=== PATIENT | male | born 1950 | race Caucasian/White ===

== ENCOUNTER 2021-02-10 09:37 | Outpatient (CLI) | payer MEDICARE, SELFPAY ==
[2021-02-10 10:21] LABS: Hematocrit 55.1 % (42.0-52.0); Hemoglobin 18.6 g/dL (14.0-18.0); Mean Corpuscular HGB Conc 33.8 g/dl (32-36); Mean Corpuscular Hemoglobin 31.2 pg (26-34); Mean Corpuscular Volume 92.4 fl (80-100); Mean Platelet Volume 9.4 fl (7.4-10.4); Platelet Count Result 193 k/mm3 (150-375); Red Blood Count 5.96 M/mm3 (4.6-6.20); Red Cell Distribution Width 13.5 % (11.5-14.5)
[2021-02-10 10:22] LABS: Alanine Aminotransferase 21 U/L (4-50); Albumin Level 4.4 g/dL (3.5-5.1); Alkaline Phosphatase 67 U/L (38-126); Anion Gap 7 mmol/L (8-16); Aspartate Amino Transferase 29 U/L (17-59); Bilirubin,Total 0.9 mg/dL (0.2-1.3); Blood Urea Nitrogen 17 mg/dL (9-20); Calcium 9.6 mg/dL (8.4-10.2); Carbon Dioxide 33 mmol/L (22-30); Chloride 103 mmol/L (98-107); Cholesterol 202 mg/dL (0-200); Estimated Glomerular Filt Rate > 60; Glucose 111 mg/dL (75-110); HDL Direct 43 mg/dL; Sodium 143 mmol/L (137-145); Triglycerides 75 mg/dL (<150)
[2021-02-10 10:33] LABS: LDL Cholesterol Direct 121 mg/dL
[2021-02-10 10:53] LABS: Prostate Specific Antigen 1.7 ng/mL (< OR = 4.0); Thyroid Stimulating Hormone 0.937 uIU/mL (0.465-4.680)
== END 2021-02-10 09:38 | disposition home or self-care (01) ==
PROVIDERS: PCP Internal Medicine; Visit Provider Physician Assistant
DX: R53.83 Other fatigue (principal); E78.5 Hyperlipidemia, unspecified; Z12.5 Encounter for screening for malignant neoplasm of prostate
CPT/HCPCS: 36415; 80053; 80061; 84153; 84443; 85027; G0103

== ENCOUNTER 2021-02-25 09:45 | Outpatient (CLI) | payer MEDICARE, SELFPAY ==
--- NOTE | ~2021-02-25 | NM_ITS ---
EXAMINATION: NM suraj stress w perfusion DATE: 02/25/2021 12:28 INDICATION: Dyspnea on exertion TECHNIQUE: Rest images were obtained following intravenous administration of 9.26 mCi Tc99m tetrofosm in (Myoview). The patient was infused intravenously with Lexiscan (Regadenoson). Then, 28.051 mCi Tc9 9m tetrofosmin (Myoview) was administered intravenously, and stress images were obtained. Data was re constructed into short axis and horizontal and vertical long axis SPECT images. Gated SPECT images we re also obtained. COMPARISON: None. FINDINGS: There is no definite reversible or fixed perfusion abnormality to suggest ischemia or infar ction. There is normal left ventricular chamber size, wall motion and ejection fraction. Left ventr icular ejection fraction measures 66%. IMPRESSION: 1. Normal myocardial perfusion at rest and during stress. 2. Left ventricular ejection fraction measuring 66%. Reviewed, dictated and finalized at location A.
--- NOTE | 2021-02-25 10:03 | EST_ITS ---
Patient Info Name: Porter Deleon Age: 70 years : 1950 Gender: Male Ht: 76 in Wt: 190 lbs BSA: 2.15 m2 Exam Date: 02/25/2021 11:26 AM Exam Location: [facility] Stress Patient Status: Outpatient Admit Date: 02/25/2021 Staff Ordering Physician: Nam Marcano PA-C Attending Provider: Nam Marcano PA-C Exercise Technologist: Opal Green RDCS Exercise Physician: Eric Madrid DO Exam Type: CA stress suraj w NM Study Info Indications R06.02 - Shortness of breath A regadenoson stress test was performed. Summary 1. 1. Negative lexiscan stress test for ischemic ST changes by ECG criteria. 2. 2. Transient complete heart block with lexiscan. 3. 3. Nuclear scan to follow and will be reported separately. Please correlate with it. 4. 4. Patient informed of the above results. Protocol: Lexiscan Stress ECG Details Stage: REST Duration (min): 1 min : 45 sec HR (bpm): 63 SBP (mmHg): 133 DBP (mmHg): 100 Stage: REST Duration (min): 8 min : 47 sec HR (bpm): 63 SBP (mmHg): 133 DBP (mmHg): 100 Stage: STAGE 1 Duration (min): 0 min : 59 sec HR (bpm): 71 SBP (mmHg): 138 DBP (mmHg): 106 Stage: RECOVERY Duration (min): 1 min : 0 sec HR (bpm): 79 SBP (mmHg): 138 DBP (mmHg): 106 Stage: RECOVERY Duration (min): 2 min : 0 sec HR (bpm): 78 SBP (mmHg): 138 DBP (mmHg): 106 Stage: RECOVERY Duration (min): 3 min : 0 sec HR (bpm): 81 SBP (mmHg): 138 DBP (mmHg): 106 Stage: RECOVERY Duration (min): 4 min : 0 sec HR (bpm): 78 SBP (mmHg): 138 DBP (mmHg): 106 Stage: RECOVERY Duration (min): 5 min : 0 sec HR (bpm): 74 SBP (mmHg): 135 DBP (mmHg): 94 Stage: RECOVERY Duration (min): 5 min : 3 sec HR (bpm): 75 SBP (mmHg): 135 DBP (mmHg): 94 Rest HR: 63 bpm Peak HR: 82 bpm Rest Sys BP: 133 mmHg Peak Sys BP: 138 mmHg Max Pred HR: 152 bpm % Max Pred HR: 54 % Target HR: 129 bpm Max RPP: 11,316 bpm*mmHg Termination Reason: Completed protocol Cardiac Symptoms: Shortness of breath, Dizziness, stomach rumbling Total Time: 1 min : 0 sec Rest Miller BP: 100 mmHg Peak Miller BP: 106 mmHg Total Dose: 0.4 mg Resting ECG Sinus rhythm, IRBBB, cannot r/o septal infarct. Stress ECG No ST changes. Arrhythmias None. Patient had 3.6 seconds complete heart block pause immediately with Lexiscan. Report Signatures
== END 2021-02-25 09:46 | disposition home or self-care (01) ==
LOC: ANHCARD 09:49
PROVIDERS: PCP Internal Medicine; Visit Provider Physician Assistant
DX: R06.02 Shortness of breath (principal)
CPT/HCPCS: 78452; 93017; A9502; J2785

== ENCOUNTER 2021-02-26 14:02 | Outpatient (CLI) | payer MEDICARE, SELFPAY ==
--- NOTE | ~2021-02-26 | US_ITS ---
EXAMINATION: US arterial ankle brachial ind DATE: 02/26/2021 14:29 INDICATION: Claudication. 1-2 pack per day smoker. Hypertension. TECHNIQUE: Segmental pressures and plethysmographic and Doppler waveforms of the brachial and lower e xtremity arteries were obtained. COMPARISON: None. FINDINGS: Right and left brachial artery pressures of 123 mm Hg and 126 mm Hg, respectively, are concordant (no rmal difference <= 30 mmHg). The right ankle-brachial index (LAISHA) is 1.13 (normal >= 0.9-1.0). The right great toe-brachial index (TBI) is 0.99 (normal >= 0.65). Arterial Doppler waveforms are biphasic. The left LAISHA is 1.25. The left TBI is 0.98. Arterial Doppler waveforms are biphasic at the posterior tibial artery and triphasic at the dorsalis pedis artery. IMPRESSION: Normal LAISHA and TBI bilaterally Reviewed, dictated and finalized at Location A. Reviewed, dictated and finalized at location B.
--- NOTE | ~2021-02-26 | CT_ITS ---
EXAMINATION:CT lung screening DATE: 02/26/2021 14:36 INDICATION: Personal history of tobacco dependence. Current smoker with 75 pack year history. TECHNIQUE: Computed tomography (CT) of the chest was performed without intravenous contrast. Automate d exposure control and iterative reconstruction technique were employed. The dose-length product (DLP ) was 129.05 mGy-cm. COMPARISON: None. FINDINGS: There is mild emphysema. There is mild scarring at the lung apices. There is a 3 mm nodule in right middle lobe. There is a 2.4 cm part-solid nodule in basilar left lower lobe with solid compo nent measuring up to 5 mm. No pleural effusion. The heart size is normal. There are coronary artery c alcifications. No pericardial effusion. There is mild thoracic spondylosis. IMPRESSION: 1. Lung-RADS category 3: Probably benign. Further evaluation is recommended with noncontrast low-dose chest CT in 6 months. Reviewed, dictated and finalized at location A. IMPRESSION: 1. Lung-RADS category 3: Probably benign. Further evaluation is recommended wit h noncontrast low-dose chest CT in 6 months.
== END 2021-02-26 14:03 | disposition home or self-care (01) ==
PROVIDERS: PCP Internal Medicine; Visit Provider Physician Assistant
DX: Z12.2 Encounter for screening for malignant neoplasm of respiratory organs (principal); Z87.891 Personal history of nicotine dependence; I73.9 Peripheral vascular disease, unspecified
CPT/HCPCS: 71271; 93922

== ENCOUNTER 2021-04-10 01:52 | Day surgery (SDC) | payer MEDICARE, SELFPAY ==
[2021-04-02 14:28] VITALS: BMI 23.3
--- NOTE | 2021-04-10 07:20 | PM.HPGS ---
History of Present Illness History of Present Illness Consent: Risks, benefits, and alternatives have been discussed and questions answered. Patient agrees to proceed with procedure. Chief complaint: neoplasm screening Narrative: Porter Deleon is a 70 year old male referred for colon cancer screening. Review of Systems Review of Systems: All systems reviewed & are unremarkable except as noted in HPI and below PMFSH Family History Family History Father Malignant neoplasm of prostate Mother Family history of dementia Social History Social History Smoking packs per day: 1.5 Smoking cigarettes per day: 30.0 Years smoked: 50 Smoking pack-years: 75.00 Smoking status: Current every day smoker Second hand tobacco smoke exposure: No Alcohol intake: current Drinks per week: 7 Living arrangements: with family Spiritual care concerns: No Meds Home Medications and Allergies Home Medications Medication Instructions Recorded Confirmed Type albuterol sulfate 90 mcg/actuation 2 puff INHALATION Q4-6H PRN #8.5 g 06/17/20 04/10/21 Rx aerosol inhaler hydrochlorothiazide 25 mg tablet 25 mg PO DAILY #90 tablet 06/17/20 04/02/21 Rx budesonide-formoterol [Symbicort] 2 puff INHALATION DAILY PRN 04/02/21 04/10/21 History umeclidinium [Incruse Ellipta] 1 inh INHALATION DAILY 04/02/21 04/02/21 History Allergies Allergy/AdvReac Type Severity Reaction Status Date / Time No Known Allergies Allergy Verified 04/02/21 14:26 Exam Resp: Auscultation: clear to auscultation bilaterally Cardio: Rate: regular rate Rhythm: regular rhythm GI: GI Palp: Yes Soft to palpation and No Tenderness to palpation present (GI) Assessment and Plan Assessment and plan (1) Screening for colorectal cancer: Code(s): Z12.11 - Encounter for screening for malignant neoplasm of colon; Z12.12 - Encounter for screening for malignant neoplasm of rectum Status: Acute Assessment and Plan: Colonoscopy with possible biopsy or polypectomy or cautery or injection of substances.
[2021-04-10 07:39] VITALS: BMI 22.5
[2021-04-10 07:49] VITALS: BP 145/89; PULSE 68; RESP 18; TEMP 35.9; O2SAT 98
--- NOTE | 2021-04-10 08:18 | WPDANESEPPF ---
Anes - Initial Pre Proc Eval Procedure: Operation Date: 04/10/21 08:30 Proposed Procedures p Screening Colonoscopy - Dez Ovalles MD Date/Time: 04/10/21 08:18 Surgeon: Dez Ovalles MD Pre Op Diagnosis: neoplasm screening Patient Data Age: 70 Gender: M Height: 1.93 m Weight: 84 kg Last Vital Signs Temp 96.6 F L 04/10/21 07:49 Pulse 68 04/10/21 07:49 Resp 18 04/10/21 07:49 BP 145/89 H 04/10/21 07:49 Pulse Ox 98 04/10/21 07:49 Allergies Allergy/AdvReac Type Severity Reaction Status Date / Time No Known Allergies Allergy Verified 04/02/21 14:26 Home Medications Medication Instructions Recorded Confirmed Type albuterol sulfate 90 mcg/actuation 2 puff INHALATION Q4-6H PRN #8.5 g 06/17/20 04/10/21 Rx aerosol inhaler hydrochlorothiazide 25 mg tablet 25 mg PO DAILY #90 tablet 06/17/20 04/02/21 Rx budesonide-formoterol [Symbicort] 2 puff INHALATION DAILY PRN 04/02/21 04/10/21 History umeclidinium [Incruse Ellipta] 1 inh INHALATION DAILY 04/02/21 04/02/21 History Patient hx anesthesia problems: none Family hx anesthesia problems: none PMFSH Past Medical History Medical History (Updated 04/10/21 @ 08:16 by Emanuel Mcclain MD) COPD (chronic obstructive pulmonary disease) Hypertension Family History Family History Father Malignant neoplasm of prostate Mother Family history of dementia Social History Social History Smoking packs per day: 1.5 Smoking cigarettes per day: 30.0 Years smoked: 50 Smoking pack-years: 75.00 Smoking status: Current every day smoker Second hand tobacco smoke exposure: No Alcohol intake: current Drinks per week: 7 Living arrangements: with family Spiritual care concerns: No Anes - Eval Final PreProcedure Day of Procedure 04/10/21 08:18 Patient weight: overweight Heart: regular rate and rhythm Lungs: clear to auscultation Airway: Mallampati scale class III Neurological: alert and oriented Last oral intake: >/= 8 hours ASA classification: III Emergent: no Anesthetic plan: proceed Anesthesia type and monitoring: general GIVS and standard monitoring Informed Consent: The patient's anesthetic plan and its attendant risks and benefits were discussed with the patient/family/POA. Questions were solicited and answers provided to the satisfaction of the patient/family/POA.
[2021-04-10] MEDS: SIMETHICONE ORAL SUSPENSION 20 MG/0.3 ML 30 ML BOTTLE 0.6 ML IRRIGATION (08:30)
[2021-04-10] MEDS: LACTATED RINGERS 1,000 ML 150 ML IV CONT (08:42)
[2021-04-10 08:47] VITALS: BP 124/82; PULSE 58; RESP 15; O2SAT 98
[2021-04-10 08:57] VITALS: BP 128/92; PULSE 55; RESP 15; O2SAT 98
[2021-04-10 09:07] VITALS: BP 135/92; PULSE 52; RESP 18; O2SAT 100
== END 2021-04-10 09:20 | disposition home or self-care (01) ==
PROVIDERS: PCP Physician Assistant; Visit Provider Internal Medicine Gastroenterology
PROC: 0DJD8ZZ Inspection of Lower Intestinal Tract, Via Natural or Artificial Opening Endoscopic (ICD-10-PCS; CPT 45378; principal; 2021-04-10 08:30)
DX: Z12.11 Encounter for screening for malignant neoplasm of colon (principal); K62.1 Rectal polyp; D12.2 Benign neoplasm of ascending colon; D12.3 Benign neoplasm of transverse colon; K64.8 Other hemorrhoids; F17.210 Nicotine dependence, cigarettes, uncomplicated
CPT/HCPCS: 45385; 88305; J7120

== ENCOUNTER 2021-10-02 09:57 | Outpatient (CLI) | payer MEDICARE, SELFPAY ==
--- NOTE | ~2021-10-02 | MR_ITS ---
EXAMINATION: MR cervical spine wo con EXAM DATE: 10/02/2021 10:59 INDICATION: R29.898 - Other symptoms and signs involving the musculos... Right hand numbness, loss of dexterity. History neck fracture, paralysis. TECHNIQUE: Multi-sequential, multiplanar MR images of the cervical spine were obtained without contra st. Axial T2, axial T2 MERGE sequence. Sagittal T1, T2, T2 fat saturation images also obtained. Th ere is no prior study for comparison. FINDINGS: There is osseous fusion of the C4-6 vertebral bodies, laminectomies of C5 and C6, posterio r decompression. There is large region of myelomalacia in the cervical spinal cord at this level. Ple ase correlate with patient's prior history. There is moderate disc disease at C6-7, mild at C3-4 with 2-3 mm anterolisthesis. There are no suspicious marrow signal abnormalities. Cervicomedullary juncti on is normal in appearance. Level by level evaluation: C2-C3: Disc does not extend beyond the endplate margin. Uncovertebral joint arthropathy: Mild bilateral. Facet joint arthropathy: Moderate right, mild left. Neural foraminal stenosis: Mild right. Central canal stenosis: No stenosis. C3-C4: There is a mild diffuse disc bulge. Uncovertebral joint arthropathy: Moderate right, mild left. Facet joint arthropathy: Severe right, mild left. Neural foraminal stenosis: Moderate to severe right. Central canal stenosis: Mild. C4-C5: This level is fused. Uncovertebral joint arthropathy: Fused. Facet joint arthropathy: Fused. Neural foraminal stenosis: No stenosis. Central canal stenosis: No stenosis. C5-C6: This level is fused. Uncovertebral joint arthropathy: Fused. Facet joint arthropathy: Fused. Neural foraminal stenosis: No stenosis. Central canal stenosis: No stenosis. C6-C7: There is a mild diffuse disc bulge. Uncovertebral joint arthropathy: Moderate to severe bilateral. Facet joint arthropathy: Moderate bilateral. Neural foraminal stenosis: Moderate to severe left. Mild right. Central canal stenosis: Mild. C7-T1: Disc does not extend beyond the endplate margin. Uncovertebral joint arthropathy: Mild to moderate bilateral. Facet joint arthropathy: Mild to moderate bilateral. Neural foraminal stenosis: Moderate left, mild right. Central canal stenosis: No stenosis. IMPRESSION: 1. C4-6 osseous fusion, laminectomies, myelomalacia; correlate with prior history. 2. Spondylosis with significant right neural foraminal stenosis C3-4, left neural foraminal stenosis C6-7. Reviewed, dictated and finalized at location G. OUR INSIGHT MANAGER IMPRESSION: 1. C4-6 osseous fusion, laminectomies, myelomalacia; correlate with prior hist ory. 2. Spondylosis with significant right neural foraminal stenosis C3-4, left nilton ral foraminal stenosis C6-7.
--- NOTE | ~2021-10-02 | CT_ITS ---
EXAMINATION: CT chest high resolution [facility] EXAM DATE: 10/02/2021 10:22 INDICATION: R93.89 -Abnormal findings on diagnostic imaging, follow-up for abnormal CT scan TECHNIQUE: Spiral CT of the chest without contrast. HRCT. Axial, coronal and sagittal images of the chest were reviewed. Coronal maximum intensity pixel images of chest reviewed. The dose-length prod uct (DLP) for this examination was 284.14 mGy-cm. The exposure was tailored according to patient siz e (auto mA exposure control), and iterative reconstruction (ASIR) was used as additional dose reducti on technique. Comparison is made to prior examination from 02/26/2021. FINDINGS: There is a newly developed spiculated 10 mm right lower lobe nodule, possible development of primary lung cancer. There is a new 6 mm right upper lobe nodule which has more linear component, more consistent with scarring. There is mild to moderate emphysema. The other lung nodules described on prior study are unchanged consistent with postinfectious residua. There are no pleural or pericardial effusions. Tracheobronchial tree is patent. There is no media stinal, hilar or axillary lymphadenopathy. There is no pneumothorax. Heart normal in size. Ther e is mild coronary arterial calcification, arterial sclerosis. Upper abdomen is unremarkable. Ther e is thoracic spondylosis without osteoblastic or osteolytic lesions identified. No evidence of int erlobular septal thickening on the HRCT. IMPRESSION: Interval development of spiculated right lower lobe 1 cm nodule, lung cancer until proven otherwise. Recommend PET/CT for further evaluation. Reviewed, dictated and finalized at location G. ETING BUDGET ANALYST IMPRESSION: Interval development of spiculated right lower lobe 1 cm nodule, lynette ng cancer until proven otherwise. Recommend PET/CT for further evaluation.
== END 2021-10-02 09:58 | disposition home or self-care (01) ==
LOC: ANHIMG 10:01
PROVIDERS: PCP Physician Assistant; Visit Provider Physician Assistant
DX: R93.89 Abnormal findings on diagnostic imaging of other specified body structures (principal); G82.50 Quadriplegia, unspecified; R29.898 Other symptoms and signs involving the musculoskeletal system; M47.892 Other spondylosis, cervical region; Z98.1 Arthrodesis status
CPT/HCPCS: 71250; 72141

== ENCOUNTER 2021-10-30 11:40 | Outpatient (CLI) | payer MEDICARE, SELFPAY ==
--- NOTE | ~2021-10-30 | PE_ITS ---
EXAMINATION: PET skull to mid thigh DATE: 10/30/2021 14:20 INDICATION: 9 neoplasm of unspecified bronchus and lung. TECHNIQUE: Blood glucose level was 113 mg/dL. 10.517 mCi of 18-fluorodeoxyglucose (18-FDG) was admini stered i.v. Low dose computed tomography (CT) images were acquired from the base of the brain to the proximal thighs for attenuation correction and anatomic localization. Positron emission tomography (P ET) images were acquired in the same distribution beginning 78 minutes after injection. Images includ ing fused PET/CT images were reconstructed in axial, coronal, and sagittal planes. Automated exposure control technique was employed. The dose-length product was 918.13mGy-cm. COMPARISON: 02/26/2021 and 10/02/2021 FINDINGS: Head/neck: There is symmetric increased activity in the oral cavity, palatine and lingual tonsils, laryngeal mus cles and ocular muscles without CT correlate, likely physiologic. No pathologically enlarged cervical lymphadenopathy or suspicious foci of increased FDG uptake in the visualized head or neck. Chest: 9 mm spiculated nodule in the right lower lobe which demonstrates decreased now groundglass density a lthough this could also be an artifact of the respiratory motion. There is no associated FDG uptake. No FDG uptake associated with a second 5 mm nodule along the inner band of atelectasis in the posteri or right upper lobe. There is also no FDG uptake associated with the poorly defined approximately 2 c m subsolid nodule at the medial basilar left lower lobe. No new or enlarging pulmonary nodules, pulmo nary edema, pleural effusion or pneumothorax. Heart size is normal. No pericardial effusion. Thoracic aorta is normal in caliber. No pathologically enlarged or FDG avid thoracic lymphadenopathy. Abdomen/pelvis/proximal thighs: Physiologic renal accumulation and excretion of FDG activity in the kidneys, bladder and along portio ns of ureters. 7 cm exophytic cyst at the upper pole of the right kidney. Normal degree and heterogen ous pattern of increased uptake throughout the liver without radiologic correlate or dominant FDG abdullahi d lesion. The gallbladder, pancreas, spleen and bilateral adrenal glands are normal. Mild uptake scat tered throughout the bowels without radiologic correlate, also likely physiologic. Normal appendix. N o other abnormal foci of increased FDG uptake or pathologically enlarged lymphadenopathy in the abdom en, pelvis or proximal thighs. Musculoskeletal: Postoperative changes in the cervical spine with C5 and C6 laminectomies and partial C4 laminectomy w ith both anterior and posterior spinal fusion at these levels. Severe spondylosis at C6-C7. Mild uppe r thoracic dextrocurvature and mild lumbar levocurvature. Osseous defect with corticated margins and without FDG uptake along the right anterior iliac spine likely sequela of old trauma or surgery. Smal l focus of increased FDG uptake along the anterior rim of the right glenoid without radiologic correl ate which is likely degenerative in etiology. Prominent FDG uptake at the left greater trochanter wit hout radiologic correlate likely related to trochanteric bursitis. No suspicious lytic, blastic or FD G avid bone lesions. IMPRESSION: 1. No FDG activity associated with either a 5 mm right middle lobe nodule, a 2 cm ill-defined subsoli d left lower lobe nodule or of a 9 mm right lower lobe nodules, the latter which appears decreased in density since the prior study which favors a benign etiology. While reassuring absence of FDG activi ty does not capsule exclude malignancy and would recommend six-month follow-up low-dose noncontrast c hest CT for further evaluation. Reviewed, dictated and finalized at location A. IMPRESSION: 1. No FDG activity associat
[2021-10-30 12:22] LABS: Glucose Point of Care 113 mg/dl (65-105)
== END 2021-10-30 11:41 | disposition home or self-care (01) ==
LOC: ANHIMG 11:41
PROVIDERS: PCP Physician Assistant; Visit Provider Physician Assistant
DX: D14.30 Benign neoplasm of unspecified bronchus and lung (principal); R91.8 Other nonspecific abnormal finding of lung field
CPT/HCPCS: 78815; A9552

== ENCOUNTER 2022-10-05 09:52 | Outpatient (CLI) | payer MEDICARE, SELFPAY ==
--- NOTE | ~2022-10-05 | CT_ITS ---
CT Scan of the Chest without Contrast: Clinical Indication: Pulmonary nodule Technique: Contiguous sections were acquired throughout the chest without intravenous contrast. Dose reduction technique was used on this scan by utilizing automated exposure control and iterative recon struction technique. The dose-length product (DLP) was 107.04 mGy-cm. COMPARISON: 10/02/2021 and 02/26/2021 Findings: There is no evidence of any significant mediastinal, hilar or axillary lymphadenopathy. The mediastin al soft tissues appear normal. There is no evidence of pleural or pericardial effusion. Interval improvement in right upper lobe peripheral pulmonary nodule (axial image 47). Stable 3 mm ri ght middle lobe pulmonary nodule (axial image 76). Linear scarring left lung base noted. Images through the upper abdomen reveal no abnormalities. Impression: Interval improvement/decrease of peripheral right upper lobe pulmonary nodule since prior exam. Stable 3 mm right middle lobe pulmonary nodule. Reviewed, dictated and finalized at [facility]. HOUSE OPERATIONS MANAGER Impression: Interval improvement/decrease of peripheral right upper lobe pulmonary nodule s tee prior exam. Stable 3 mm right middle lobe pulmonary nodule.
[2022-10-05 10:45] LABS: Basophils Percent Auto 0.3 % (0.2-1.2); Eosinophils Absolute Auto 0.1 K/mm3 (0-0.3); Eosinophils Percent Auto 0.9 % (0-4.4); Hematocrit 54.5 % (42.0-52.0); Immature Granulocyte Absolute 0.02 K/mm3 (0.00-0.031); Immature Granulocyte Percent A 0.3 % (0-0.5); Lymphocytes Absolute Auto 1.17 K/mm3 (0.9-3.2); Lymphocytes Percent Auto 18.5 % (18.3-44.2); Mean Corpuscular Volume 96.8 fl (80-100); Mean Platelet Volume 9.8 fl (7.4-10.4); Monocytes Absolute Auto 0.6 K/mm3 (0.1-0.6); Monocytes Percent Auto 9.3 % (2.6-8.5); Neutrophils Absolute Auto 4.5 K/mm3 (1.3-6.7); Neutrophils Percent Auto 70.7 % (45.5-73.1); Platelet Count Result 190 k/mm3 (150-375); Red Blood Count 5.63 M/mm3 (4.6-6.20); Red Cell Distribution Width 13.7 % (11.5-14.5); White Blood Count 6.3 K/mm3 (4.5-10.0)
[2022-10-05 11:07] LABS: Alanine Aminotransferase 22 U/L (6-50); Albumin Level 4.5 g/dL (3.5-5.1); Alkaline Phosphatase 79 U/L (38-126); Anion Gap 5 mmol/L (8-16); Aspartate Amino Transferase 27 U/L (17-59); Bilirubin,Total 1.1 mg/dL (0.2-1.3); Blood Urea Nitrogen 13 mg/dL (9-20); Calcium 8.7 mg/dL (8.4-10.2); Carbon Dioxide 31 mmol/L (22-30); Chloride 106 mmol/L (98-107); Cholesterol 179 mg/dL (0-200); Estimated Glomerular Filt Rate > 60; Glucose 104 mg/dL (65-110); HDL Direct 43 mg/dL; Potassium 3.8 mmol/L (3.4-5.0); Sodium 142 mmol/L (137-145); Triglycerides 46 mg/dL (<150)
[2022-10-05 11:19] LABS: LDL Cholesterol Direct 106 mg/dL
[2022-10-05 11:28] LABS: Iron 120 ug/dL (49-181)
[2022-10-05 11:37] LABS: Percent Iron Saturation 35 % (20-50)
[2022-10-05 11:38] LABS: Prostate Specific Antigen 0.8 ng/mL (< OR = 4.0); Thyroid Stimulating Hormone 0.543 uIU/mL (0.465-4.680)
[2022-10-05 12:16] LABS: Folic Acid > 20.0 ng/mL (2.76->20)
== END 2022-10-05 09:53 | disposition home or self-care (01) ==
PROVIDERS: PCP Physician Assistant; Visit Provider Physician Assistant
DX: E78.5 Hyperlipidemia, unspecified (principal); Z12.5 Encounter for screening for malignant neoplasm of prostate; R53.83 Other fatigue; D58.2 Other hemoglobinopathies; R91.1 Solitary pulmonary nodule
CPT/HCPCS: 36415; 71250; 80053; 80061; 82607; 82746; 83540; 83550; 84153; 84443; 85025; G0103

== ENCOUNTER 2024-03-02 10:01 | Outpatient (CLI) | payer MEDICARE, SELFPAY ==
[2024-03-02 10:46] LABS: Hematocrit 56.7 % (42.0-52.0); Mean Corpuscular HGB Conc 33.5 g/dl (32-36); Mean Corpuscular Hemoglobin 32.2 pg (26-34); Mean Corpuscular Volume 96.1 fl (80-100); Mean Platelet Volume 9.3 fl (7.4-10.4); Platelet Count Result 179 k/mm3 (150-375); Red Cell Distribution Width 13.3 % (11.5-14.5); White Blood Count 6.9 K/mm3 (4.5-10.0)
[2024-03-02 12:46] LABS: Alanine Aminotransferase 20 U/L (6-50); Albumin Level 4.6 g/dL (3.5-5.1); Alkaline Phosphatase 76 U/L (38-126); Anion Gap 10 mmol/L (4-12); Aspartate Amino Transferase 26 U/L (17-59); Bilirubin,Total 0.9 mg/dL (0.2-1.3); Blood Urea Nitrogen 13 mg/dL (9-20); Calcium 8.8 mg/dL (8.4-10.2); Carbon Dioxide 30 mmol/L (22-30); Chloride 101 mmol/L (98-107); Cholesterol 185 mg/dL (0-200); Estimated Glomerular Filt Rate > 60; Glucose 102 mg/dL (65-110); HDL Direct 45 mg/dL; Potassium 3.7 mmol/L (3.4-5.0); Sodium 141 mmol/L (137-145); Triglycerides 57 mg/dL (<150)
[2024-03-02 12:58] LABS: LDL Cholesterol Direct 128 mg/dL
[2024-03-02 13:16] LABS: Prostate Specific Antigen 0.9 ng/mL (< OR = 4.0); Thyroid Stimulating Hormone 0.876 uIU/mL (0.465-4.680)
== END 2024-03-02 10:02 | disposition home or self-care (01) ==
LOC: ANHLAB 10:07
PROVIDERS: PCP Physician Assistant; Visit Provider Nurse Practitioner
DX: R53.83 Other fatigue (principal); E78.5 Hyperlipidemia, unspecified; Z12.5 Encounter for screening for malignant neoplasm of prostate; D58.2 Other hemoglobinopathies
CPT/HCPCS: 36415; 80053; 80061; 84153; 84443; 85027; G0103

== ENCOUNTER 2024-08-30 13:55 | Outpatient (CLI) | payer MEDICARE, BC, SELFPAY ==
--- NOTE | ~2024-08-30 | XR_ITS ---
EXAMINATION: XR ribs LT 2V DATE: 08/30/2024 14:13 INDICATION: Pleurodynia the left lateral lower chest TECHNIQUE: 3 views of the left ribs were obtained. COMPARISON: Chest CT dated 10/05/2022 FINDINGS: Doppler displaced fracture of the lateral left eighth-10th ribs. Small left pleural effusion with lef t basilar atelectasis. No left-sided pneumothorax. Visualized portions of the right lung also appears unremarkable with no evident pleural effusion or pneumothorax heart size is normal. Sclerotic lesion with appearance consistent with chondroid matrix at the proximal diaphyseal region of the left humer us without evident endosteal scalloping most consistent with an enchondroma. IMPRESSION: 1. Mildly displaced acute fractures of the lateral left eighth-10th rib fractures. 2. Small left pleural effusion with associated basilar atelectasis. Reviewed, dictated and finalized at location B. W IMPRESSION: 1. Mildly displaced acute fractures of the lateral left eighth-10th rib fractur es. 2. Small left pleural effusion with associated basilar atelectasis.
== END 2024-08-30 13:56 | disposition home or self-care (01) ==
PROVIDERS: PCP Nurse Practitioner; Visit Provider Nurse Practitioner
DX: S22.42XA Multiple fractures of ribs, left side, initial encounter for closed fracture (principal); X58.XXXA Exposure to other specified factors, initial encounter; J90 Pleural effusion, not elsewhere classified; J98.11 Atelectasis
CPT/HCPCS: 71100

== ENCOUNTER 2024-09-21 00:45 | Day surgery (SDC) | payer MEDICARE, SELFPAY ==
[2024-09-08 11:48] VITALS: BMI 21.9
--- OUTSIDE RECORDS SUMMARY | 2024-09-21 00:47 | XMS_ITS | Clinical Summary ---
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 Gender Identity Not on file Sexual Orientation Not on file Plan of Treatment Health Maintenance Due Date Last Done Comments Colorectal Cancer Screening Colonoscopy (10 Years) 1950 Hepatitis C 1970 DTaP, Tdap and Td Vaccines ( 1 - Tdap) 1971 Zoster Vaccines (1 of 2) 2002 Pneumococcal Vaccine: 65+ Ye ars (1 of 1 - PCV) 2017 COVID-19 Vaccine ( - 2023-2 5 season) 2024 Influenza Adult (#1) 2024 RSV Immunization or 60+ Years (1 - 1-dose 75+ series) 2027 Meningococcal B Vaccine Aged Out No l onger eligible based on patient's age to complete this topic Meningococcal Vaccine Aged Out No lenin marco eligible based on patient's age to complete this topic RSV Immunizations Under 20 Months Aged Out No longer eligible based on patient's age to complete this topic Advance Directives Documents on File Type Date Recorded Patient Nurse Epidemiologist Expl anation Advance Directives and Living Will 10/30/2017 [employer] POWER OF PUBLIC HEALTH CLINICAL NURSE SPECIALIST Advance Directives and Living Will 10/30/2017 SHORT FORM POWER OF PUBLIC HEALTH CLINICAL NURSE SPECIALIST Advance Directives and Living Will 11/02/2016 SHORT FORM POWER OF PUBLIC HEALTH CLINICAL NURSE SPECIALIST Advance Directives and Living Will 11/02/2016 SHORT FORM POWER OF PUBLIC HEALTH CLINICAL NURSE SPECIALIST
--- OUTSIDE RECORDS SUMMARY | 2024-09-21 00:47 | XMS_ITS | Encounter Summary ---
Author Organization [facility] Address [address] [place] [address] Care Team Providers Care Certified Alcohol Drug Counselor Name Role Phone Nam Marcano PA-C Primary Care Provide r Encounter Details Date Type Department Care Team (Late st Contact Info) Description 04/06/2008 Outpatient Historical [facility] James Granados MD [address] [place] [address] [place] [address] Social History Tobacco Use Types Packs/Day Years Used Date Smoking Tobacco: Every Day Cigarettes 2 30 Alcohol Use Standard Drinks/Week Comments No 0 (1 standard drink = 0.6 oz pur e alcohol) Sex and Gender Information Value Date Recorded Sex Assigned at Not on file Legal Sex Male 5:34 AM RADIO PERFORMER Gender Identity Not on file Sexual Orientation Not on file documented as of this encounter Plan of Treatment Not on file documented as of this encounter Procedures Procedure Name Priority Date/Time Associated Diagnosis Comments PATHOLOGY Routine 04/06/2008 12:00 PM CDT documented in this encounter Results * PATHOLOGY (04/06/2008 12:00 PM CDT) FINAL REPORT [facility] [address] [place], [place] [address] Patient: PORTER CRUZ : 1950 Procedure Date: 04/06/2008 Accession Date: 04/06/2008 Case No: [id number] Ordering Dr: JAMES GRANADOS Case types AW, BW, FW, NW and SH are performed by [facility], [place], [place] SURGICAL PATHOLOGY & NON-GYNECOLOGIC CYTOPATHOLOGY REPORT DIAGNOSIS LARGE INTESTINE, SIGMOID, BIOPSY: - HYPERPLASTIC POLYP. Specimen Description: Sigmoid. Operative Procedure: Colonoscopy. Patient Information/Histo ry/Diagnosis: Colon polyp(s). Adenomatous vs. hyperplastic vs. other. Gross: Received in one container labeled Porter Cruz., sigmoid are three dean tissue fragments, each 0.2 cm in greatest dimension, which are submitted in block A1. [facility] 04.06.2008 01:43 pm Microscopic: Received are three slides labeled [id number] William. Histological sections of the specimen labeled sigmoid show multiple fragments of colonic mucosa with serrated epithelium confined to the superficial surface of the mucosa. There is no evidence of cytological atypia or malignancy. [facility] 04.07.2008 08:15 am Staging Form: No. ELECTRONIC SIGNATURE FOR OSMAR ALVARADO MD- 04/07/08 12:08 pm INTERFACE SYSTEM 04/06/2008 12:0 0 PM CDT us James Granados MD PATHOLOGY/CYTOLOGY ORDERABL ES Final Result INTERFACE SYSTEM Refer to clinic/hospital department documented in this encounter Visit Diagnoses Not on filedocumented in this encounter Care Teams Certified Alcohol Drug Counselor Relationship Specialty Start Date End Date Nam Marcano PA-C PCP - General Physician Greenkeeper 10/12/18 documented as of this encounter
--- OUTSIDE RECORDS SUMMARY | 2024-09-21 00:47 | XMS_ITS | Clinical Summary ---
Author Organization [facility] Address [address] [place] [address] Phone Care Team Providers Care Oil Plant Operator Name Role Phone Provider, None Primary Care Provider Unavailabl e Allergies Active Allergy Reactions Criticality Noted Date Comments Bupropion Other (see Comments) 09/18/2024 seizures Medications hydroCHLOROthia zide 25 MG Tablet Take 25 mg by mouth 2 times daily. Active Pseudoephedrine -Guaifenesin (MUCINEX D PO) Take by mouth. Active albuterol (PROVENTIL HFA, VENTOLIN HFA) 108 (90 Base) MCG/ACT Aerosol Solution take 2 Puffs by inhalation every 4 hours as needed for Wheezing. 8.5 g 8 Active naproxen sodium (Aleve) 220 MG Tablet Take 220 mg by mouth. Active Incruse Ellipta 62.5 MCG/ACT AEROSOL POWDER, BREATH ACTIVATED inhale 1 puff by mouth once daily Active Tadalafil 5 MG Tablet Take 5 mg by mouth daily. 4 Active LUTEIN PO Take 1 Tablet by mouth daily. Active cetirizine (ZyrTEC) 5 MG Tablet Take 10 mg by mouth daily. Active amoxicillin (AMOXIL) 875 MG Tablet Take 1 Tablet by mouth 2 times daily for 10 days. 20 Tablet 5 09/28/19 25 Active azithromycin (ZITHROMAX) 250 MG Tablet Take 2 Tablets by mouth daily for 1 day, THEN 1 Tablet daily for 4 days. 2 tab(s) daily for 1 day, then 1 tab(s) daily for days 2-5. 6 Tablet 5 09/23/19 25 Active Encounters Date Type Department Care Team Description 09/18/2024 4:00 PM INDUSTRIAL SAFETY AND HEALTH MANAGER Ancillary Procedure [facility] [place] [address] [place] [address] Yoana Shabazz APRN, CNP Discharge Disposition: Discharged to home or Selfcare 09/18/2024 1:55 PM INDUSTRIAL SAFETY AND HEALTH MANAGER Urgent Care Visit [facility] [address] [place] [address] Yoana Shabazz APRN, CNP Rib pain (Primary Dx) Discharge Disposition: Discharged to home or Selfcare 09/18/2024 Results Follow-Up [facility] [place] [address] [place] [place] [address] Yoana Shabazz APRN, CNP 09/18/2024 Travel 07/05/2024 11:45 AM INDUSTRIAL SAFETY AND HEALTH MANAGER Ancillary Procedure [facility] [place] [address] [place] [place] [address] Yoana Shabazz APRN, CNP Discharge Disposition: Discharged to home or Selfcare 07/05/2024 10:45 AM INDUSTRIAL SAFETY AND HEALTH MANAGER Urgent Care Visit [facility] [address] [place] [address] Yoana Shabazz APRN, CNP Acute cough (Primary Dx) Discharge Disposition: Discharged to home or Selfcare 07/05/2024 Travel from Last 3 Months Immunizations Immunization Administration Dates Next Due Influenza Vaccine, Quadrivalent, PF 07/23/2021,1 Influenza, High-dose, Quadrivalent 06/17/2023, Influenza, Seasonal, Injectable, Undefined 06/11 Influenza, high-dose, trivalent, PF 06/14/2024,1 08/16/2018,06/10/2018 Pneumococcal Vaccine - 13 Valent 06/10/2018 Pneumococcal Vaccine Adult - 23 Valent 9 Social History Tobacco Use Types Packs/Day Years Used Date Smoking Tobacco: Every Day Cigarettes Smokeless Tobacco: Never Tobacco Cessation:Ready to Q uit: Not Asked; Counseling Given: Not Answered Alcohol Use Standard Drinks/Week Comments Yes 0 (1 standard drink = 0.6 oz pur e alcohol) socially Sexually Active Control Partners Comments Not Currently Sex and Gender Information Value Date Recorded Sex Assigned at Not on file Legal Sex Male 1:57 PM INDUSTRIAL SAFETY AND HEALTH MANAGER Gender Identity Not on file Sexual Orientation Not on file Last Filed Vital Signs Vital Sign Reading Time Taken Comments Blood Pressure 144/88 09/18/2024 1:52 PM INDUSTRIAL SAFETY AND HEALTH MANAGER Pulse 79 09/18/2024 1:52 PM INDUSTRIAL SAFETY AND HEALTH MANAGER Temperature 36.9 C (98.4 F) 09/18/2024 1:52 PM INDUSTRIAL SAFETY AND HEALTH MANAGER Respiratory Rate 19 09/18/2024 1:52 PM INDUSTRIAL SAFETY AND HEALTH MANAGER Oxygen Saturation 94% 09/18/2024 1:52 PM INDUSTRIAL SAFETY AND HEALTH MANAGER Inhaled Oxygen Concentration - - Weight 89.4 kg (197 lb) 04/28/2018 10:16 AM CDT Height 193 cm (6' 4 ) 11/03/2017 1:05 PM CDT Body Mass Index 23.98 11/03/2017 1:05 PM CDT Plan of Treatment Health Maintenance Due Date Last Done Comments Hepatitis C Virus (HCV) Screening 1950 TdaP Immunization 1950 Colonoscopy 1997 Colorectal Cancer Screening 1997 Cologuard 2002 Immunochemical Fecal Occult Blood 2002 Zoster Immunization (1 of 2) 2002 AAA Screening Ultrasound 2017 SARS-COV-2 Immunization ( season) 2024 06/14/2024, 06/17/2023, 07/08/2022, Additional history exists Respiratory Syncytial Virus (RSV) Immunization (Adult) (1 - 1-dose 75+ series) 2027 Pneumococcal Immunization (50+ years) Completed 06/16/2019, 06/10/2018 Pneumococcal Immunization Combined Discontinued 06/16/2019, 06/10/2018 Influenza Immunization Completed , 06/17/2023, 07/08/2022, Additional history exists Hepatitis B Immunization Aged Out No longer eligible based on patient's age to complete this topic Meningococcal Immunization (ACWY) Aged Out No longer eligible based on patient's age to complete this topic Rotavirus Immunization Aged Out No lo nger eligible based on patient's age to complete this topic Procedures Procedure Name Priority Date/Time Associated Diagnosis Comments XR RIBS BILATERAL WITH PA CHEST Stat with Interpretation 09/18/2024 4:08 PM INDUSTRIAL SAFETY AND HEALTH MANAGER Rib pain XR CHEST 2 VIEWS Stat with Interpretation 07/05/2024 11:51 AM INDUSTRIAL SAFETY AND HEALTH MANAGER Acute cough POC INFLUENZA A AND B BY MOLECULAR Routine 07/05/2024 11:08 AM INDUSTRIAL SAFETY AND HEALTH MANAGER Acute cough POC SARS-COV-2 BY MOLECULAR Routine 07/05/2024 11:06 AM INDUSTRIAL SAFETY AND HEALTH MANAGER Acute cough from Last 3 Months Results * XR RIBS BILATERAL WITH PA CHEST (09/18/2024 4:08 PM INDUSTRIAL SAFETY AND HEALTH MANAGER) Anatomical Region Laterality Modality Chest, Rib Bilateral Digital Radiogra phy 09/18/2024 4:25 PM INDUSTRIAL SAFETY AND HEALTH MANAGER Impressions 09/18/2024 4:27 PM INDUSTRIAL SAFETY AND HEALTH MANAGER IMPRESSION: Suspected minimally displaced fractures of the lateral left 10th and 11th ribs and lateral right 9th rib. These could be better evaluated on CT if clinically appropriate. Small left-sided pleural effusion with left basilar opacities, which may represent atelectasis or pneumonia. Narrative 09/18/2024 4:27 PM INDUSTRIAL SAFETY AND HEALTH MANAGER EXAM DESCRIPTION: XR RIBS BILATERAL WITH PA CHEST REASON FOR STUDY: pt c/o right rib pain x 2 days, pt states that he did break some ribs on the left side in early August. He is concerned he has pneumonia due to the broken ribs in August. He continues to have some pain in the left side also TECHNIQUE: 3 view(s) of the bilateral ribs with single view of the chest. COMPARISON: Chest radiograph 07/05/2024 FINDINGS: LUNGS: There is a small left-sided pleural effusion with left basilar opacities. No pneumothorax. HEART/MEDIASTINUM: Cardiac silhouette normal in size. Mediastinal and hilar contours appear normal. LINES/TUBES: None. BONES: There are suspected minimally displaced fractures of the lateral left 10th and 11th ribs. There is also a suspected minimally displaced fracture of the lateral right 9th rib. THIS IS AN ELECTRONICALLY VERIFIED FINAL REPORT 09/18/2024 4:25 PM - Electronically signed by Miguel Blackwell M.D. AM: AM Report ID: [id number] Reading Location: [id number] Procedure Note Miguel Blackwell MD - 09/18/2024 EXAM DESCRIPTION: XR RIBS BILATERAL WITH PA CHEST REASON FOR STUDY: pt c/o right rib pain x 2 days, pt states that he did break some ribs on the left side in early August. He is concerned he has pneumonia due to the broken ribs in August. He continues to have some pain in the left side also TECHNIQUE: 3 view(s) of the bilateral ribs with single view of the chest. COMPARISON: Chest radiograph 07/05/2024 FINDINGS: LUNGS: There is a small left-sided pleural effusion with left basilar opacities. No pneumothorax. HEART/MEDIASTINUM: Cardiac silhouette normal in size. Mediastinal and hilar contours appear normal. LINES/TUBES: None. BONES: There are suspected minimally displaced fractures of the lateral left 10th and 11th ribs. There is also a suspected minimally displaced fracture of the lateral right 9th rib. THIS IS AN ELECTRONICALLY VERIFIED FINAL REPORT 09/18/2024 4:25 PM - Electronically signed by Miguel Blackwell M.D. AM: AM Report ID: [id number] Reading Location: [id number] IMPRESSION: Suspected minimally displaced fractures of the lateral left 10th and 11th ribs and lateral right 9th rib. These could be better evaluated on CT if clinically appropriate. Small left-sided pleural effusion with left basilar opacities, which may represent atelectasis or pneumonia. Yoana Shabazz STRAND BUNCHER FINE WIRE, STERILE PROCESSING TECHNICIAN IMG DIAGNOSTIC ORD ERABLES Final Result * XR CHEST 2 VIEWS (07/05/2024 11:51 AM INDUSTRIAL SAFETY AND HEALTH MANAGER) Anatomical Region Laterality Modality Chest N/A Digital Radiogra phy 07/05/2024 12:2 7 PM INDUSTRIAL SAFETY AND HEALTH MANAGER Impressions 07/05/2024 12:29 PM INDUSTRIAL SAFETY AND HEALTH MANAGER IMPRESSION: No acute cardiopulmonary abnormality. Heart size within normal limits. Thoracic aorta moderately tortuous and ectatic. Narrative 07/05/2024 12:29 PM INDUSTRIAL SAFETY AND HEALTH MANAGER EXAM DESCRIPTION: XR CHEST 2 VIEWS REASON FOR STUDY: Cough and congestion for 3 days TECHNIQUE: PA and lateral radiographic view(s) of the chest. COMPARISON: April 28, 2018 FINDINGS: LUNGS: No focal opacity, pleural effusion, or pneumothorax. HEART/MEDIASTINUM: Heart size within normal limits. Thoracic aorta moderately tortuous and ectatic. LINES/TUBES: None. BONES: No acute osseous abnormality. THIS IS AN ELECTRONICALLY VERIFIED FINAL REPORT 07/05/2024 12:27 PM - Electronically signed by El Livingston M.D. RB: RB Report ID: [id number] Reading Location: [place] [address] Procedure Note El Livingston MD - 07/05/2024 EXAM DESCRIPTION: XR CHEST 2 VIEWS REASON FOR STUDY: Cough and congestion for 3 days TECHNIQUE: PA and lateral radiographic view(s) of the chest. COMPARISON: April 28, 2018 FINDINGS: LUNGS: No focal opacity, pleural effusion, or pneumothorax. HEART/MEDIASTINUM: Heart size within normal limits. Thoracic aorta moderately tortuous and ectatic. LINES/TUBES: None. BONES: No acute osseous abnormality. THIS IS AN ELECTRONICALLY VERIFIED FINAL REPORT 07/05/2024 12:27 PM - Electronically signed by El Livingston M.D. RB: RB Report ID: [id number] Reading Location: [place] [address] IMPRESSION: No acute cardiopulmonary abnormality. Heart size within normal limits. Thoracic aorta moderately tortuous and ectatic. Yoana Shabazz STRAND BUNCHER FINE WIRE, STERILE PROCESSING TECHNICIAN IMG DIAGNOSTIC ORD ERABLES Final Result * POC INFLUENZA A AND B BY MOLECULAR (07/05/2024 11:08 AM INDUSTRIAL SAFETY AND HEALTH MANAGER) INFLUENZA A RNA Negative Negative, Invalid INFLUENZA B RNA Negative Negative, Invalid PROCEDURE CONTROL Valid Swab 07/05/2024 11:0 8 AM INDUSTRIAL SAFETY AND HEALTH MANAGER Yoana Shabazz APRN, CNP POINT OF CARE TEST ING (MANUAL) Final Result * POC SARS-COV-2 BY MOLECULAR (07/05/2024 11:06 AM INDUSTRIAL SAFETY AND HEALTH MANAGER) SARSCOV2 Negative Negative, INVALID PROCEDURE CONTROL Valid Swab NASOPHARYNGEAL SWAB / Unknown 07/05/2024 11:06 AM INDUSTRIAL SAFETY AND HEALTH MANAGER Yoana Shabazz APRN, MYLA POINT OF CARE TEST ING (MANUAL) Final Result from Last 3 Months Insurance MEDICARE [facility] Care Teams Oil Plant Operator Relationship Specialty Start Date End Date Provider, None [place] PCP - General 09/10/17
--- OUTSIDE RECORDS SUMMARY | 2024-09-21 00:47 | XMS_ITS | Encounter Summary ---
Author Organization [facility] Address [address] [place] [address] Care Team Providers Care Wireline Operator Name Role Phone Unavailable Primary Care Provider Unavailabl e Encounter Details Date Type Department Care Team (Late st Contact Info) Description 10/30/2017 Abstract [facility] CONVERSION [address] [place] [address] , Generic Conversion, Social History Tobacco Use Types Packs/Day Years Used Date Smoking Tobacco: Never Assessed Sex and Gender Information Value Date Recorded Sex Assigned at Not on file Legal Sex Male 10:50 PM ASSOCIATE DIRECTOR FINANCE Gender Identity Not on file Sexual Orientation Not on file documented as of this encounter Plan of Treatment Not on file documented as of this encounter Visit Diagnoses Not on filedocumented in this encounter
--- OUTSIDE RECORDS SUMMARY | 2024-09-21 00:47 | XMS_ITS | Encounter Summary ---
Author Organization [facility] Address [address] [place] [address] Care Team Providers Care Side Laster Staple Name Role Phone Nam Marcano PA-C Primary Care Provide r Encounter Details Date Type Department Care Team (Latest Contact Info) Description 01/26/2008 Outpatient Historical [facility] Ariel Davis MD [address] [place] [address] Special Screening for Malignant Neoplasm of Prostate Social History Tobacco Use Types Packs/Day Years Used Date Smoking Tobacco: Every Day Cigarettes 2 30 Alcohol Use Standard Drinks/Week Comments No 0 (1 standard drink = 0.6 oz pur e alcohol) Sex and Gender Information Value Date Recorded Sex Assigned at Not on file Legal Sex Male 5:34 AM CRM MANAGER Gender Identity Not on file Sexual Orientation Not on file documented as of this encounter Plan of Treatment Not on file documented as of this encounter Visit Diagnoses Diagnosis Special screening for malignant neoplasm of prostate documented in this encounter Care Teams Side Laster Staple Relationship Specialty Start Date End Date Nam Marcano PA-C PCP - General Physician Inspector Purchased Parts 10/12/18 documented as of this encounter
--- OUTSIDE RECORDS SUMMARY | 2024-09-21 00:48 | XMS_ITS | Referral Summary ---
Author Organization [facility] [address] Address [address] [place] [address] Care Team Providers Care Residential Nurse Name Role Phone Hiram Gonsales MD Primary Care Provider [phone] Allergies No known active allergies Medications hydroCHLOROthiaz zacarias (HYDRODIURIL) 25 mg tablet Take 25 mg by mouth daily 12/16/2020 Active Incruse Ellipta 62.5 mcg/actuation blister with device INHALE 1 PUFF BY MOUTH ONCE DAILY 02/24/2021 Active Active Problems Problem Noted Date Diagnosed Date COPD (chronic obstructive pulmonary disease) Pulmonary HTN 04/09/2021 Atrioventricular block, complete (CMS/HCC) 03/13 First degree AV block 03/13/2021 Intermittent lightheadedness 03/13/2021 Tobacco abuse 03/13/2021 DUDLEY (dyspnea on exertion) 03/13/2021 Dyslipidemia 03/13/2021 Acute hemorrhagic cystitis 03/21/2016 Overview (11/19/2016): Acute cystitis with hematuria Social History Tobacco Use Types Packs/Day Years Used Date Smoking Tobacco: Heavy Smoker Smokeless Tobacco: Never Comments:Smoking History Pac ks/day: 2 Packs Alcohol Use Standard Drinks/Week Comments Yes 0 (1 standard drink = 0.6 oz pur e alcohol) Personal Safety Answer Date Recorded Getting School Help Needed Not on file 10/29 Sex and Gender Information Value Date Recorded Sex Assigned at Not on file Legal Sex Male 1:42 PM WAREHOUSE PROCESSOR Gender Identity Not on file Sexual Orientation Not on file Last Filed Vital Signs Vital Sign Reading Time Taken Comments Blood Pressure 130/84 04/09/2021 10:29 AM CDT Pulse 72 04/09/2021 10:29 AM CDT Temperature - - Respiratory Rate 16 03/13/2021 10:1 3 AM CDT Oxygen Saturation 98% 04/09/2021 10: 29 AM CDT Inhaled Oxygen Concentration - - Weight 87.4 kg (192 lb 11.2 oz) 021 10:29 AM CDT Height 193 cm (6' 4 ) 04/09/2021 10:29 AM CDT Body Mass Index 23.46 04/09/2021 10:29 AM CDT Plan of Treatment Not on file Insurance MEDICARE [facility] Care Teams Residential Nurse Relationship Specialty Start Date End Date Hiram Gonsales MD [address] [address] PCP - General Internal Medicine 03/13/21
--- OUTSIDE RECORDS SUMMARY | 2024-09-21 00:48 | XMS_ITS | Clinical Summary ---
Author Organization [facility] Address [address] [place] [address] Phone Care Team Providers Care Product/Device Technologist Name Role Phone Nam Marcano PA-C Primary Care Provide r Allergies No known active allergies Medications CENTRUM SILVER Oral Tab Take 1 Tab by mouth daily. Active ALEVE 220 mg Oral Tab Take 220 mg by mouth every 4 hours as needed Active WELLBUTRIN SR 150 mg Oral TbSRIndications :Depression Take 1 Tab by mouth 2 times daily. 180 Tab 3 9 Active Tadalafil (CIALIS) 10 mg Oral Tab Take 10 mg by mouth 1 time daily as needed for Other (See Comment). 10 Tab 0 9 Active hydroCHLOROthia zide 25 mg tablet Take 25 mg by mouth daily. Active umeclidinium brm/vilanterol tr (ANORO ELLIPTA INHALATION) Take 1 Puff by inhalation daily. Active cetirizine (ZyrTEC) 5 mg tablet Take 10 mg by mouth daily. Active diazePAM (VALIUM) 5 mg tablet Take 1 Tablet by mouth 4 times daily as needed for Spasm. 90 Tablet 10/19/2018 7:44 PM LIGHTNING PROTECTION INSTALLER 9 Active oxyCODONE-aceta minophen (PERCOCET) 5-325 mg tablet Take 1 Tablet by mouth every 4 hours as needed for Pain. Max Daily Amount: 6 Tablets 42 Tablet 10/19/2018 7:44 PM LIGHTNING PROTECTION INSTALLER 9 Active Active Problems Problem Noted Date Diagnosed Date Depression 09/07/2008 Tobacco use disorder 01/24/2008 Screening for lipoid disorders 01/24/2008 Prostate cancer screening 01/24/2008 Routine physical examination 01/24/2008 Immunizations Immunization Administration Dates Next Due Influenza Seasonal Unspecified Formulation IM Family History Medical History Relation Name Comments Cancer Father prostate Dementia Mother Relation Name Status Comments Father Mother Social History Tobacco Use Types Packs/Day Years Used Date Smoking Tobacco: Every Day Cigarettes 2 30 Smokeless Tobacco: Never Alcohol Use Standard Drinks/Week Comments Yes 0 (1 standard drink = 0.6 oz pur e alcohol) socially Sex and Gender Information Value Date Recorded Sex Assigned at Not on file Legal Sex Male 5:34 AM LIGHTNING PROTECTION INSTALLER Gender Identity Not on file Sexual Orientation Not on file Last Filed Vital Signs Vital Sign Reading Time Taken Comments Blood Pressure 134/75 10/19/2018 7:00 PM LIGHTNING PROTECTION INSTALLER Pulse 85 10/19/2018 7:00 PM LIGHTNING PROTECTION INSTALLER Temperature 36.6 C (97.8 F) 10/19/2018 7:00 PM LIGHTNING PROTECTION INSTALLER Respiratory Rate 16 10/19/2018 7:00 PM LIGHTNING PROTECTION INSTALLER Oxygen Saturation 93% 10/19/2018 7:00 PM LIGHTNING PROTECTION INSTALLER Inhaled Oxygen Concentration - - Weight 90.4 kg (199 lb 6.4 oz) 10/19/2018 1:04 P M LIGHTNING PROTECTION INSTALLER Height 193 cm (6' 4 ) 10/19/2018 1:04 PM LIGHTNING PROTECTION INSTALLER Body Mass Index 24.27 10/19/2018 1:04 PM LIGHTNING PROTECTION INSTALLER Plan of Treatment Health Maintenance Due Date Last Done Comments FIT/ DNA Q 3 YEARS (AUTO ORDER) 1970 FIT/FOBT Q 1 YEAR (AUTO ORDER) 1970 FLEX SIG/CT COLONOGRAPHY Q 5 YEARS (AUTO ORDER) 1970 DTAP/TDAP/TD VACCINES (1 - Tdap) 1971 Traditional Medicare (ACO) A nnual Wellness Visit 1971 COLORECTAL CANCER SCREENING (AUTO ORDER) 1997 COLORECTAL SCREENING 1997 Colorectal Cancer Screening (AUTO ORDER) 1997 Colorectal Cancer Screening 1997 FIT-DNA Q 3 years 1997 FIT/FOBT Q 1 year 1997 Flex Sig/CT Colonography Q 5 years 1997 ZOSTER VACCINE (1 of 2) 2002 PNEUMOCOCCAL VACCINE 65+ YEA RS (2 of 2 - PPSV23) 08/05/2018 06/10/2018 INFLUENZA VACCINE (#1) 2024 06/11/2018, 2017 RSV VACCINE (60+ or ) (1 - 1-dose 75+ series) 2027 Medical Devices Implanted Type Area Batter Mixer Helper Device Identifier Shelf Expiration Date Model / Serial / Lot Hemostatic Surgiflo 8ml W/Thrombin 2994 - [id number] Implanted:Qty : 1 on 10/19/2018 by Janes Navarro MD at [facility] Hemostatic N/A: Epidural Space [employer] [id number] 02/13/2020 [id number] / / [id number] Thumb Hardware Neck Hardware Insurance MEDICARE PART A AND B [facility] [id number] [address] Medicare Part D RX [employer] PLANS (INTERNAL) [facility] Internal Plans Advance Directives For more information, please contact: [phone] * Full Code (Latest Code Status on File) Date Activated Date Inactivated Comments 10/19/2018 4:06 PM 10/19/2018 11:32 PM * Full Code Date Activated Date Inactivated Comments 10/19/2018 1:30 PM 10/19/2018 4:06 PM Care Teams Product/Device Technologist Relationship Specialty Start Date End Date Nam Marcano PA-C PCP - General Physician Optometric Technician 10/12/18
--- OUTSIDE RECORDS SUMMARY | 2024-09-21 00:48 | XMS_ITS | Continuity of Care Document ---
Author Organization [facility] Address [address] [facility] [address] [place] [address] Phone Care Team Providers Care Fiber Optics Technician Name Role Phone Sandeep Cruz MD Unavailable Unavailable Allergies, Adverse Reactions, Alerts Substance Reaction Status Criticality No Known Allergies Active No Inform ation Medications Medication Instructions Dosage Effective Dates (start - stop) Status Comments HYDROCHLOROTHIAZIDE (unknown strength) take 1 tablet by oral route every day Not Available - Active Procedures Procedure Date OFFICE/OUTPATIENT VISIT [facility] Advance Directives Directive Yes / No Effective Date File Name No Information Encounters Encounter Description Practice Location Reason(s) For Visit Diagnoses Date Provider Providers Copied on Encounter [facility], [address] [place] [address], [facility], [phone] [facility] No Information [address] [facility]. [address] [place] [address], [id number] . tel: [phone] OFFICE/OUTPAT IENT VISIT [facility], [address] [place] [address], [facility], tel:[phone] [facility] Chronic instability of right knee 9 [facility]. [address] [place] [address], [id number] . tel: [phone] Family History Family Member Type Diagnosis Age At Onset Daughter Problem (finding) Alive and well Payers Payer name Insurance type Covered alliance party ID Authoriza tion(s) No Information Social History Type Description Quantity Date Captured Comments Sex Male Smoking Status No Information Chief Complaint And Reason For Visit No Information Reason For Referral Reason For Referral No Information Plan Of Treatment Date Type Action Status Referral Ordered: RADEX ISAUROE COMPL 4/MORE VIEWS RT ordered History Of Present Illness Encounter Date Complaint History Of Prese nt Illness No Information Functional Status Date Functional Assessmen t No Information Instructions Date Instruction Additional Infor mation No Information Assessments Type Assessment Date No Information Patient Care Teams Name Effective Dates (start - stop) Status Members No Information
--- OUTSIDE RECORDS SUMMARY | 2024-09-21 00:48 | XMS_ITS | Clinical Summary ---
Author Organization [facility] [address] Address [address] [place] [address] Care Team Providers Care Auto Body Mechanic Name Role Phone Hiram Gonsales MD Primary Care Provider [phone] Allergies No known active allergies Medications hydroCHLOROthiaz [...] 03/21/2016 Overview (11/19/2016): Acute cystitis with hematuria Surgical History Surgery Date Site/Laterality Comments PROSTATE SURGERY THUMB SURGERY Medical History Medical History Date Comments Hx Other Medical 2007 thumb surgery Hx Other Medical 1972 neck surgery Hypertension COPD (chronic obstructive pulmonary disease) (HC C) Enlarged prostate Family History Medical History Relation Name Comments Other Father 2 age; Cause of D eath: age Prostate cancer Father 2 Cancer -pros moralez; Alzheimer's disease Mother 2 Alzheime r's Disease; Cause of : Alzheimer's Disease Relation Name Status Comments Father 1 (Age 100) Father 2 Mother 1 (Age 83) Mother 2 Social History Tobacco Use Types Packs/Day Years [...] on file Legal 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
--- OUTSIDE RECORDS SUMMARY | 2024-09-21 00:48 | XMS_ITS | Encounter Summary ---
Author Organization [facility] Address [address] [place] [address] Care Team Providers Care Care Attendant Name Role Phone Nam Marcano PA-C Primary Care Provide r Encounter Details Date Type Department Care Team (Latest Contact Info) Description 02/24/2008 Outpatient Historical [facility] Ariel Davis MD [address] [place] [address] [place] [address] Pain in Joint, Multiple Sites Social History Tobacco Use Types Packs/Day Years Used Date Smoking Tobacco: Every Day Cigarettes 2 30 Alcohol Use Standard Drinks/Week Comments No 0 (1 standard drink = 0.6 oz pur e alcohol) Sex and Gender Information Value Date Recorded Sex Assigned at Not on file 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
--- OUTSIDE RECORDS SUMMARY | 2024-09-21 00:48 | XMS_ITS | Encounter Summary ---
Author Organization [facility] Address [address] [place] [address] Phone Care Team Providers Care Copywriter Name Role Phone Provider, None Primary Care Provider Unavailabl e Encounter Details Date Type Department Care Team (Late st Contact Info) Description 09/18/2024 Results Follow-Up [facility] [place] [address] [place] [address] Yoana Shabazz APRN, AUTOMATIC OPERATOR [address] [place] [address] Social History Tobacco Use Types Packs/Day Years Used Date Smoking Tobacco: Every Day Cigarettes Smokeless Tobacco: Never Alcohol Use Standard Drinks/Week Comments Yes 0 (1 standard drink = 0.6 oz pur e alcohol) socially Sexually Active Control Partners Comments Not Currently Sex and Gender Information Value Date Recorded Sex Assigned at Not on file Legal Sex Male 1:57 PM PHYSICAL SECURITY SPECIALIST Gender Identity Not on file Sexual Orientation Not on file documented as of this encounter Plan of Treatment Not on file documented as of this encounter Visit Diagnoses Not on filedocumented in this encounter Additional Health Concerns Assessment Noted Time PHQ-9 Depression Total Score: 0 09/20/19 18 3:00 PM PHYSICAL SECURITY SPECIALIST documented as of this encounter Care Teams Copywriter Relationship Specialty Start Date End Date Provider, None [place] PCP - General 09/10/17 documented as of this encounter
[2024-09-21 08:40] VITALS: BP 126/103; PULSE 70; RESP 18; TEMP 35.9; O2SAT 95; BMI 22.0
[2024-09-21] MEDS: LACTATED RINGERS 1,000 ML 150 ML IV CONT (08:51)
--- NOTE | 2024-09-21 09:05 | WPDANESEPPF ---
Anes - Initial Pre Proc Eval Procedure: Operation Date: 09/21/24 10:00 Proposed Procedures p Screening Colonoscopy - Ld Girard MD Date/Time: 09/21/24 09:05 Surgeon: Ld Girard MD Pre Op Diagnosis: personal hx colon polyps Patient Data Age: 74 Gender: M Height: 1.93 m Weight: 82.1 kg Last Vital Signs Temp 35.9 C L 09/21/24 08:40 Pulse 70 09/21/24 08:40 Resp 18 09/21/24 08:40 BP 126/103 H 09/21/24 08:40 Pulse Ox 95 09/21/24 08:40 O2 Del Method Room Air 09/21/24 08:40 Allergies Allergy/AdvReac Type Severity Reaction Status Date / Time bupropion AdvReac Severe Muscle Verified 09/21/24 08:39 Spasms Home Medications ?Medication ?Instructions ?Recorded ?Confirmed ?Type albuterol sulfate 90 mcg/actuation 2 puff inhalation Q4-6H PRN 06/17/20 09/13/24 Rx aerosol inhaler (ProAir HFA) shortness of breath or wheezing #8.5 grams tadalafil 5 mg tablet See Rx Instructions .Route 08/22/24 09/13/24 Rx .COMPLEX #30 tabs tolterodine 4 mg capsule,extended 4 mg PO Q24H #30 caps 08/30/24 09/21/24 Rx release 24 hr umeclidinium 62.5 mcg/actuation See Rx Instructions .Route 09/21/24 09/21/24 Rx blister powder for inhalation .COMPLEX #90 ea (Incruse Ellipta) Patient hx anesthesia problems: none Family hx anesthesia problems: none Results Review: All pre-operative results and documents have been reviewed as part of the pre-operative evaluation. [facility] Past Medical History Medical History Closed fracture of cervical spine BMI 24.0-24.9, adult Screening for prostate cancer Sciatica of right side Right leg weakness Essential hypertension Easy bruising Cough COPD exacerbation Blurred vision Atypical nevus COVID-19 Hypertension COPD (chronic obstructive pulmonary disease) Family History Family History Father Malignant neoplasm of prostate Mother Family history of dementia Social History Social History Smoking packs per day: 1 Smoking cigarettes per day: 20.0 Years smoked: 50 Smoking pack-years: 50.00 Smoking status: Current every day smoker Tobacco type: cigarettes Second hand tobacco smoke exposure: No Alcohol intake: current Drinks per week: 3 Substance use: never Substance use type: does not use Do You Feel Safe in your Home?: Yes Lack of Transportation: No Lack of Food: Never True Current Housing: I Have Housing Concerned About Future Housing: No Difficulty Paying Gas/Electric Bills: No Difficulty Paying for Meds: No Currently Unemployed: No Education: Trade/Vocational Certificate Difficulty w/ Childcare or Family Care: No Living arrangements: alone Occupation/Education: retired Additional occupation/education comments: [employer] Gender identity (if verbalized by the patient): Male Spiritual care concerns: No Anes - Eval Final PreProcedure Day of Procedure 09/21/24 09:05 Patient weight: normal Heart: regular rate and rhythm Lungs: decreased breath sounds Airway: Mallampati scale class II Neurological: alert and oriented Last oral intake: >/= 8 hours ASA classification: III Emergent: no Anesthetic plan: proceed Anesthesia type and monitoring: general GIVS and standard monitoring Results Review: All pre-operative results and documents have been reviewed as part of the pre-operative evaluation. Informed Consent: The patient's anesthetic plan and its attendant risks and benefits were discussed with the patient/family/POA. Questions were solicited and answers provided to the satisfaction of the patient/family/POA.
--- NOTE | 2024-09-21 09:19 | P.HP_ITS ---
History of Present Illness History of Present Illness Consent: Risks, benefits, and alternatives have been discussed and questions answered. Patient agrees to proceed with procedure. Chief complaint: personal hx colon polyps Narrative: Porter Deleon is a 74 year old male with colon polyp in 2020 Review of Systems Review of Systems: All systems reviewed & are unremarkable except as noted in HPI and below PMFSH Past Medical History Medical History (Updated 09/21/24 @ 09:20 by Ld Girard MD) Colon polyp Closed fracture of cervical spine BMI 24.0-24.9, adult Screening for prostate cancer Sciatica of right side Right leg weakness Essential hypertension Easy bruising Cough COPD exacerbation Blurred vision Atypical nevus COVID-19 Hypertension COPD (chronic obstructive pulmonary disease) Family History Family History Father Malignant neoplasm of prostate Mother Family history of dementia Social History Social History Smoking packs per day: 1 Smoking cigarettes per day: 20.0 Years smoked: 50 Smoking pack-years: 50.00 Smoking status: Current every day smoker Tobacco type: cigarettes Second hand tobacco smoke exposure: No Alcohol intake: current Drinks per week: 3 Substance use: never Substance use type: does not use Do You Feel Safe in your Home?: Yes Lack of Transportation: No Lack of Food: Never True Current Housing: I Have Housing Concerned About Future Housing: No Difficulty Paying Gas/Electric Bills: No Difficulty Paying for Meds: No Currently Unemployed: No Education: Trade/Vocational Certificate Difficulty w/ Childcare or Family Care: No Living arrangements: alone Occupation/Education: retired Additional occupation/education comments: [employer] Gender identity (if verbalized by the patient): Male Spiritual care concerns: No Meds Home Medications and Allergies Home Medications ?Medication ?Instructions ?Recorded ?Confirmed ?Type albuterol sulfate 90 mcg/actuation 2 puff inhalation Q4-6H PRN 06/17/20 09/13/24 Rx aerosol inhaler (ProAir HFA) shortness of breath or wheezing #8.5 grams tadalafil 5 mg tablet See Rx Instructions .Route 08/22/24 09/13/24 Rx .COMPLEX #30 tabs tolterodine 4 mg capsule,extended 4 mg PO Q24H #30 caps 08/30/24 09/21/24 Rx release 24 hr umeclidinium 62.5 mcg/actuation See Rx Instructions .Route 09/21/24 09/21/24 Rx blister powder for inhalation .COMPLEX #90 ea (Incruse Ellipta) Allergies Allergy/AdvReac Type Severity Reaction Status Date / Time bupropion AdvReac Severe Muscle Verified 09/21/24 08:39 Spasms Vital Signs Vital Signs - 24 hr 09/21/24 08:40 Temperature 96.6 F L Pulse Rate 70 Respiratory Rate 18 Blood Pressure 126/103 H Pulse Oximetry 95 Oxygen Delivery Room Air Exam Const: General: comfortable and no acute distress HENMT: Face/Nose/Sinus: Normal nares present Eyes: General: appearance normal, both eyes and all related structures Neck: Neck: no JVD Resp: Auscultation: clear to auscultation bilaterally Cardio: Rate: regular rate Rhythm: regular rhythm GI: Inspection: non-distended GI Palp: Yes Soft to palpation Skin: General skin exam: normal color Neuro: Speech: normal speech Extrem: General: normal to inspection Psych: Mental Status: mental status grossly normal Assessment and Plan Assessment and plan (1) Colon polyp: Code(s): K63.5 - Polyp of colon Status: Acute Assessment and Plan: colonoscopy
[2024-09-21 09:39] VITALS: BP 121/79; PULSE 59; RESP 15; O2SAT 98
[2024-09-21 09:49] VITALS: BP 140/90; PULSE 60; RESP 17; O2SAT 98
[2024-09-21 09:59] VITALS: BP 153/101; PULSE 59; RESP 21; O2SAT 100
== END 2024-09-21 10:17 | disposition home or self-care (01) ==
PROVIDERS: PCP Nurse Practitioner; Referring Provider Internal Medicine Gastroenterology; Visit Provider Internal Medicine Gastroenterology
PROC: 0DJD8ZZ Inspection of Lower Intestinal Tract, Via Natural or Artificial Opening Endoscopic (ICD-10-PCS; CPT 45378; principal; 2024-09-21 10:00)
DX: Z12.11 Encounter for screening for malignant neoplasm of colon (principal); D12.3 Benign neoplasm of transverse colon; K63.5 Polyp of colon; K64.8 Other hemorrhoids; F17.210 Nicotine dependence, cigarettes, uncomplicated
CPT/HCPCS: 45385; 88305; J7120

== ENCOUNTER 2024-09-29 13:09 | Outpatient (CLI) | payer MEDICARE, SELFPAY ==
--- NOTE | ~2024-09-29 | US_ITS ---
EXAM: Focused ultrasound examination of the soft tissues of the right groin HISTORY: K40.90 - Unilateral inguinal hernia, without obstruction ... TECHNIQUE: Sonographic evaluation of the soft tissues of the right groin were performed assessing gra yscale appearance and color Doppler flow. COMPARISON: Reference is made to a PET/CT dated . FINDINGS: Sonographic evaluation of the soft tissues of the right groin demonstrate benign fibrofatty and fibro muscular elements without a cystic or solid lesion of concern. IMPRESSION No sonographic abnormality is appreciated on focused ultrasound examination. Reviewed, dictated and finalized at location A. R TEST IMPRESSION No sonographic abnormality is appreciated on focused ultrasound examination.
== END 2024-09-29 13:10 | disposition home or self-care (01) ==
LOC: MICIMG 13:10
PROVIDERS: PCP Nurse Practitioner; Visit Provider Surgery
DX: K40.90 Unilateral inguinal hernia, without obstruction or gangrene, not specified as recurrent (principal)
CPT/HCPCS: 76882

== ENCOUNTER 2024-09-29 14:39 | Outpatient (CLI) | payer MEDICARE, SELFPAY ==
--- NOTE | ~2024-09-29 | CT_ITS ---
Clinical indication:Solitary pulmonary nodule COMPARISON:10/02/2021 and 10/05/2022 TECHNIQUE: Multiple contiguous axial images of the chest were performed without the administration of intravenous contrast. DLP: 122 mGy-cm FINDINGS: LUNG:Interval resolution of the right upper lobe peripheral pulmonary nodule seen on axial image 47 o f the 2022 study and on image 41 of today's examination. Stable appearance of the 3 mm right middle lobe pulmonary nodule seen on axial image 76 of the 2022 s tudy and on image 68 of today's examination. No new pulmonary nodules are detected. The lungs are clear. MEDIASTINUM:No pathologically enlarged or morphologically suspicious lymph nodes within the mediastin um. HEART:The heart is of normal size, without pericardial effusion. SOFT TISSUES OF THE CHEST: Unremarkable BONES OF THE CHEST: Unremarkable VISUALIZED PORTION OF THE UPPER ABDOMEN: Redemonstration of a large right-sided renal cyst. Gallbladder is decompressed, without calcified stones. A small hiatal hernia is present. IMPRESSION: Interval resolution of the peripheral right upper lobe pulmonary nodule since the previous examinatio n. 2 years of stability of the 3 mm right middle lobe pulmonary nodule Reviewed, dictated and finalized at location A. EN MILL UTILITY WORKER IMPRESSION: Interval resolution of the peripheral right upper lobe pulmonary nodule since t he previous examination. 2 years of stability of the 3 mm right middle lobe pulmonary nodule
--- OUTSIDE RECORDS SUMMARY | 2024-09-29 14:43 | XMS_ITS | Clinical Summary ---
Author Organization [facility] Address [address] [place] [address] Phone Care Team Providers Care Senior Manager Creative Services Name Role Phone Nam Marcano PA-C Primary [...] for Spasm. 90 Tablet 10/19/2018 7:44 PM CHESS INSTRUCTOR 9 Active oxyCODONE-aceta minophen (PERCOCET) 5-325 mg tablet Take 1 Tablet by mouth every 4 hours as needed for Pain. Max Daily Amount: 6 Tablets 42 Tablet 10/19/2018 7:44 PM CHESS INSTRUCTOR 9 Active Active Problems Problem Noted Date [...] on file Legal Sex Male 5:34 AM CHESS INSTRUCTOR Gender Identity Not on file Sexual Orientation Not on file Last Filed Vital Signs Vital Sign Reading Time Taken Comments Blood Pressure 134/75 10/19/2018 7:00 PM CHESS INSTRUCTOR Pulse 85 10/19/2018 7:00 PM CHESS INSTRUCTOR Temperature 36.6 C (97.8 F) 10/19/2018 7:00 PM CHESS INSTRUCTOR Respiratory Rate 16 10/19/2018 7:00 PM CHESS INSTRUCTOR Oxygen Saturation 93% 10/19/2018 7:00 PM CHESS INSTRUCTOR Inhaled Oxygen Concentration - - Weight 90.4 kg (199 lb 6.4 oz) 10/19/2018 1:04 P M CHESS INSTRUCTOR Height 193 cm (6' 4 ) 10/19/2018 1:04 PM CHESS INSTRUCTOR Body Mass Index 24.27 10/19/2018 1:04 PM CHESS INSTRUCTOR Plan of Treatment Health Maintenance Due Date [...] series) 2027 Medical Devices Implanted Type Area Pot Maker Device Identifier Shelf Expiration Date Model / Serial / Lot Hemostatic Surgiflo 8ml W/Thrombin 2994 - [id number] Implanted:Qty : 1 on 10/19/2018 by Janes Navarro MD at [facility] Hemostatic N/A: Epidural Space [employer] [id number] 02/13/2020 [id number] / / [id number] Thumb Hardware Neck Hardware Insurance MEDICARE PART A AND B [facility] [id number] RX [place] Medicare Part D RX [employer] PLANS (INTERNAL) [facility] Internal Plans Advance Directives For more information, please contact: [phone] * Full Code (Latest Code Status on File) Date Activated Date Inactivated Comments 10/19/2018 4:06 PM 10/19/2018 11:32 PM * Full Code Date Activated Date Inactivated Comments 10/19/2018 1:30 PM 10/19/2018 4:06 PM Care Teams Senior Manager Creative Services Relationship Specialty Start Date End Date Nam Marcano PA-C PCP - General Physician Otolaryngologist 10/12/18
--- OUTSIDE RECORDS SUMMARY | 2024-09-29 14:43 | XMS_ITS | Encounter Summary ---
Author Organization [facility] Address [address] [place] [address] Care Team Providers Care Cocoa Bean Roaster Helper Name Role Phone Nam Marcano PA-C Primary Care Provide r Encounter Details Date Type Department Care Team (Late st Contact Info) Description 04/06/2008 Outpatient Historical [facility] James Granados MD [address] [place] [address] [place] [address] Social History Tobacco Use Types Packs/Day Years Used Date Smoking Tobacco: Every Day Cigarettes 2 30 Alcohol Use Standard Drinks/Week Comments No 0 (1 standard drink = 0.6 oz pur e alcohol) Sex and Gender Information Value Date Recorded Sex Assigned at Not on file Legal Sex Male 5:34 AM WRAPPER HAND Gender Identity Not on file Sexual Orientation Not on file documented as of this encounter Plan of Treatment Not on file documented as of this encounter Procedures Procedure Name Priority Date/Time Associated Diagnosis Comments PATHOLOGY Routine 04/06/2008 12:00 PM CDT documented in this encounter Results * PATHOLOGY (04/06/2008 12:00 PM CDT) FINAL REPORT [facility] [address] [place], [place] [address] Patient: PORTER CRUZ : 1950 Procedure Date: 04/06/2008 Accession Date: 04/06/2008 Case No: [id number] Ordering Dr: JAMES GRANADOS Case types AW, BW, FW, NW and SH are performed by [facility], [place], [place] SURGICAL PATHOLOGY & NON-GYNECOLOGIC CYTOPATHOLOGY REPORT DIAGNOSIS LARGE INTESTINE, SIGMOID, BIOPSY: - HYPERPLASTIC POLYP. Specimen Description: Sigmoid. Operative Procedure: Colonoscopy. Patient Information/Histo ry/Diagnosis: Colon polyp(s). Adenomatous vs. hyperplastic vs. other. Gross: Received in one container labeled Porter Cruz., sigmoid are three dean tissue fragments, each 0.2 cm in greatest dimension, which are submitted in block A1. [facility] 04.06.2008 01:43 pm Microscopic: Received are three slides labeled [id number] William. Histological sections of the specimen labeled sigmoid show multiple fragments of colonic mucosa with serrated epithelium confined to the superficial surface of the mucosa. There is no evidence of cytological atypia or malignancy. [facility] 04.07.2008 08:15 am Staging Form: No. ELECTRONIC SIGNATURE FOR OSMAR ALVARADO MD- 04/07/08 12:08 pm INTERFACE SYSTEM 04/06/2008 12:0 0 PM CDT us James Granados MD PATHOLOGY/CYTOLOGY ORDERABL ES Final Result INTERFACE SYSTEM Refer to clinic/hospital department documented in this encounter Visit Diagnoses Not on filedocumented in this encounter Care Teams Cocoa Bean Roaster Helper Relationship Specialty Start Date End Date Nam Marcano PA-C PCP - General Physician Grant Writer 10/12/18 documented as of this encounter
--- OUTSIDE RECORDS SUMMARY | 2024-09-29 14:43 | XMS_ITS | Clinical Summary ---
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
--- OUTSIDE RECORDS SUMMARY | 2024-09-29 14:43 | XMS_ITS | Encounter Summary ---
Author Organization [facility] Address [address] [place] [address] Care Team Providers Care Narcotics And Vice Detective Name Role Phone Nam Marcano PA-C Primary Care Provide r Encounter Details Date Type Department Care Team (Latest Contact Info) Description 01/26/2008 Outpatient Historical [facility] Ariel Davis MD [address] [place] [address] Special Screening for Malignant Neoplasm of Prostate Social History Tobacco Use Types Packs/Day Years Used Date Smoking Tobacco: Every Day Cigarettes 2 30 Alcohol Use Standard Drinks/Week Comments No 0 (1 standard drink = 0.6 oz pur e alcohol) Sex and Gender Information Value Date Recorded Sex Assigned at Not on file Legal Sex Male 5:34 AM MEDICAL RECORDS COORDINATOR Gender Identity Not on file Sexual Orientation Not on file documented as of this encounter Plan of Treatment Not on file documented as of this encounter Visit Diagnoses Diagnosis Special screening for malignant neoplasm of prostate documented in this encounter Care Teams Narcotics And Vice Detective Relationship Specialty Start Date End Date Nam Marcano PA-C PCP - General Physician Color Checker Roving Or Yarn 10/12/18 documented as of this encounter
--- OUTSIDE RECORDS SUMMARY | 2024-09-29 14:43 | XMS_ITS | Encounter Summary ---
Author Organization [facility] [place] Address [address] [place] [address] Care Team Providers Care Fisher Gill Net Name Role Phone Unavailable Primary Care Provider Unavailabl e Encounter Details Date Type Department Care Team (Late st Contact Info) Description 10/30/2017 Abstract [facility] CONVERSION [address] [place] [address] , Generic Conversion, Social History Tobacco Use Types Packs/Day Years Used Date Smoking Tobacco: Never Assessed Sex and Gender Information Value Date Recorded Sex Assigned at Not on file Legal Sex Male 10:50 PM DUSTER TENDER Gender Identity Not on file Sexual Orientation Not on file documented as of this encounter Plan of Treatment Not on file documented as of this encounter Visit Diagnoses Not on filedocumented in this encounter
--- OUTSIDE RECORDS SUMMARY | 2024-09-29 14:43 | XMS_ITS | Encounter Summary ---
Author Organization [facility] Address [address] [place] [address] Care Team Providers Care Education Program Associate Name Role Phone Nam Marcano PA-C Primary Care Provide r Encounter Details Date Type Department Care Team (Latest Contact Info) Description 02/24/2008 Outpatient Historical [facility] Ariel Davis MD [address] [place] [address] [place] [address] Pain in Joint, Multiple Sites Social History Tobacco Use Types Packs/Day Years Used Date Smoking Tobacco: Every Day Cigarettes 2 30 Alcohol Use Standard Drinks/Week Comments No 0 (1 standard drink = 0.6 oz pur e alcohol) Sex and Gender Information Value Date Recorded Sex Assigned at Not on file Legal Sex Male 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
--- OUTSIDE RECORDS SUMMARY | 2024-09-29 14:43 | XMS_ITS | Encounter Summary ---
Author Organization [facility] Address [address] [place] [address] Phone Care Team Providers Care Repairer Handtools Name Role Phone Provider, None Primary Care Provider Unavailabl e Encounter Details Date Type Department Care Team (Late st Contact Info) Description 09/18/2024 Results Follow-Up [facility] - [facility] [place] [address] [place] [address] Yoana Shabazz APRN, FORENSIC PSYCHOLOGIST [address] [place] [address] Social History Tobacco Use Types Packs/Day Years Used Date Smoking Tobacco: Every Day Cigarettes Smokeless Tobacco: Never Alcohol Use Standard Drinks/Week Comments Yes 0 (1 standard drink = 0.6 oz pur e alcohol) socially Sexually Active Control Partners Comments Not Currently Sex and Gender Information Value Date Recorded Sex Assigned at Not on file Legal Sex Male 1:57 PM DICTAPHONE MECHANIC Gender Identity Not on file Sexual Orientation Not on file documented as of this encounter Plan of Treatment Not on file documented as of this encounter Visit Diagnoses Not on filedocumented in this encounter Additional Health Concerns Assessment Noted Time PHQ-9 Depression Total Score: 0 09/20/19 18 3:00 PM DICTAPHONE MECHANIC documented as of this encounter Care Teams Repairer Handtools Relationship Specialty Start Date End Date Provider, None [place] PCP - General 09/10/17 documented as of this encounter
--- OUTSIDE RECORDS SUMMARY | 2024-09-29 14:43 | XMS_ITS | Referral Summary ---
Author Organization [facility] [address] Address [address] [place] [address] Care Team Providers Care Research Compliance Specialist Name Role Phone Hiram Gonsales MD Primary Care Provider +1- [phone] Allergies No known active allergies Medications hydroCHLOROthiaz [...] on file Legal Sex Male 1:42 PM GRADES 1 THROUGH 5 TEACHER Gender Identity Not on file Sexual Orientation [...] file Insurance MEDICARE [facility] Care Teams Research Compliance Specialist Relationship Specialty Start Date End Date Hiram Gonsales MD [address] [address] PCP - General Internal Medicine 03/13/21
--- OUTSIDE RECORDS SUMMARY | 2024-09-29 14:43 | XMS_ITS | Clinical Summary ---
Author Organization [facility] Address [facility]ly [facility] [place] [address] Care Team Providers Care Harbor Tug Captain Name Role Phone Unavailable Primary Care Provider Unavailabl e Social History Tobacco Use Types Packs/Day Years Used Date Smoking Tobacco: Never Assessed Sex and Gender Information Value Date Recorded Sex Assigned at Not on file Legal Sex Male 10:50 PM PRECISION FILER HAND Gender Identity Not on file Sexual Orientation Not on file Plan of Treatment Health Maintenance Due Date Last Done Comments Colorectal Cancer Screening Colonoscopy (10 Years) 1950 Hepatitis C 1970 DTaP, Tdap and Td Vaccines ( 1 - Tdap) 1971 Zoster Vaccines (1 of 2) 2002 Pneumococcal Vaccine: 65+ Ye ars (1 of 1 - PCV) 2017 COVID-19 Vaccine (1 - 2023-2 5 season) 2024 Influenza Adult [...] Documents on File Type Date Recorded Patient Hemodialysis Rn Expl anation Advance Directives and Living Will 10/30/2017 SHORT FORM POWER OF EDITOR PUBLICATIONS Advance Directives and Living Will 10/30/2017 SHORT FORM POWER OF EDITOR PUBLICATIONS Advance Directives and Living Will 11/02/2016 SHORT FORM POWER OF EDITOR PUBLICATIONS Advance Directives and Living Will 11/02/2016 SHORT FORM POWER OF EDITOR PUBLICATIONS
--- OUTSIDE RECORDS SUMMARY | 2024-09-29 14:43 | XMS_ITS | Clinical Summary ---
Author Organization [facility] Address [address] [place] [address] Phone Care Team Providers Care Director Retirement Name Role Phone Provider, None Primary Care [...] 10 days. 20 Tablet 5 09/28/19 25 azithromycin (ZITHROMAX) 250 MG Tablet Take 2 Tablets by mouth daily for 1 day, THEN 1 Tablet daily for 4 days. 2 tab(s) daily for 1 day, then 1 tab(s) daily for days 2-5. 6 Tablet 5 09/23/19 25 Encounters Date Type Department Care Team Description 09/18/2024 4:00 PM DAMAGE PREVENTION COORDINATOR Ancillary Procedure [facility] - Diagnostic Radiology - [place] [address] [place] [address] Yoana Shabazz APRN, CNP Discharge Disposition: Discharged to home or Selfcare 09/18/2024 1:55 PM DAMAGE PREVENTION COORDINATOR Urgent Care Visit [facility] [place] [address] [place] [address] Yoana Shabazz APRN, CNP Rib pain (Primary Dx) Discharge Disposition: Discharged to home or Selfcare 09/18/2024 Results Follow-Up [facility] [place] [address] [place] [address] Yoana Shabazz APRN, CNP 09/18/2024 Travel 07/05/2024 11:45 AM DAMAGE PREVENTION COORDINATOR Ancillary Procedure [facility] Diagnostic Radiology - [place] [address] [place] [address] Yoana Shabazz APRN, CNP Discharge Disposition: Discharged to home or Selfcare 07/05/2024 10:45 AM DAMAGE PREVENTION COORDINATOR Urgent Care Visit [facility] [address] [place] [address] Yoana Shabazz APRN, CNP Acute cough (Primary [...] on file Legal Sex Male 1:57 PM DAMAGE PREVENTION COORDINATOR Gender Identity Not on file Sexual Orientation Not on file Last Filed Vital Signs Vital Sign Reading Time Taken Comments Blood Pressure 144/88 09/18/2024 1:52 PM DAMAGE PREVENTION COORDINATOR Pulse 79 09/18/2024 1:52 PM DAMAGE PREVENTION COORDINATOR Temperature 36.9 C (98.4 F) 09/18/2024 1:52 PM DAMAGE PREVENTION COORDINATOR Respiratory Rate 19 09/18/2024 1:52 PM DAMAGE PREVENTION COORDINATOR Oxygen Saturation 94% 09/18/2024 1:52 PM DAMAGE PREVENTION COORDINATOR Inhaled Oxygen Concentration - - Weight 89.4 [...] CHEST Stat with Interpretation 09/18/2024 4:08 PM DAMAGE PREVENTION COORDINATOR Rib pain XR CHEST 2 VIEWS Stat with Interpretation 07/05/2024 11:51 AM DAMAGE PREVENTION COORDINATOR Acute cough POC INFLUENZA A AND B BY MOLECULAR Routine 07/05/2024 11:08 AM DAMAGE PREVENTION COORDINATOR Acute cough POC SARS-COV-2 BY MOLECULAR Routine 07/05/2024 11:06 AM DAMAGE PREVENTION COORDINATOR Acute cough from Last 3 Months Results * XR RIBS BILATERAL WITH PA CHEST (09/18/2024 4:08 PM DAMAGE PREVENTION COORDINATOR) Anatomical Region Laterality Modality Chest, Rib Bilateral Digital Radiogra phy 09/18/2024 4:25 PM DAMAGE PREVENTION COORDINATOR Impressions 09/18/2024 4:27 PM DAMAGE PREVENTION COORDINATOR IMPRESSION: Suspected minimally displaced fractures of the lateral left 10th and 11th ribs and lateral right 9th rib. These could be better evaluated on CT if clinically appropriate. Small left-sided pleural effusion with left basilar opacities, which may represent atelectasis or pneumonia. Narrative 09/18/2024 4:27 PM DAMAGE PREVENTION COORDINATOR EXAM DESCRIPTION: XR RIBS BILATERAL WITH PA [...] Miguel Blackwell M.D. AM: AM Report ID: [id number] Reading Location: [id number] Procedure Note Miguel Blackwell MD - 09/18/2024 [...] Miguel Blackwell M.D. AM: AM Report ID: [id number] Reading Location: [id number] IMPRESSION: Suspected minimally displaced fractures of the lateral left 10th and 11th ribs and lateral right 9th rib. These could be better evaluated on CT if clinically appropriate. Small left-sided pleural effusion with left basilar opacities, which may represent atelectasis or pneumonia. Yoana Shabazz INSOLE FILLER, BLOCK INSPECTOR IMG DIAGNOSTIC ORD ERABLES Final Result * XR CHEST 2 VIEWS (07/05/2024 11:51 AM DAMAGE PREVENTION COORDINATOR) Anatomical Region Laterality Modality Chest N/A Digital Radiogra phy 07/05/2024 12:2 7 PM DAMAGE PREVENTION COORDINATOR Impressions 07/05/2024 12:29 PM DAMAGE PREVENTION COORDINATOR IMPRESSION: No acute cardiopulmonary abnormality. Heart size within normal limits. Thoracic aorta moderately tortuous and ectatic. Narrative 07/05/2024 12:29 PM DAMAGE PREVENTION COORDINATOR EXAM DESCRIPTION: XR CHEST 2 VIEWS REASON [...] El Livingston M.D. RB: RB Report ID: [id number] Reading Location: [id number] Procedure Note El Livingston MD - 07/05/2024 [...] El Livingston M.D. RB: RB Report ID: [id number] Reading Location: [id number] IMPRESSION: No acute cardiopulmonary abnormality. Heart size within normal limits. Thoracic aorta moderately tortuous and ectatic. Yoana Shabazz INSOLE FILLER, BLOCK INSPECTOR IMG DIAGNOSTIC ORD ERABLES Final Result * POC INFLUENZA A AND B BY MOLECULAR (07/05/2024 11:08 AM DAMAGE PREVENTION COORDINATOR) INFLUENZA A RNA Negative Negative, Invalid INFLUENZA B RNA Negative Negative, Invalid PROCEDURE CONTROL Valid Swab 07/05/2024 11:0 8 AM DAMAGE PREVENTION COORDINATOR Yoana Shabazz APRN, MYLA POINT OF CARE TEST ING (MANUAL) Final Result * POC SARS-COV-2 BY MOLECULAR (07/05/2024 11:06 AM DAMAGE PREVENTION COORDINATOR) SARSCOV2 Negative Negative, INVALID PROCEDURE CONTROL Valid Swab NASOPHARYNGEAL SWAB / Unknown 07/05/2024 11:06 AM DAMAGE PREVENTION COORDINATOR Yoana Shabazz APRN, MYLA POINT OF CARE TEST ING (MANUAL) Final Result from Last 3 Months Insurance MEDICARE Member Subscriber Plan / Payer (Ef fective 2017-Present) Name:Porter Deleon Member ID:[id number] Relation to Subscriber:Self Name:Porter Deleon Subscriber ID:[id number] Payer ID:[id number] Group ID:Not on file Type:Not on file Address: [facility] [address] [employer] [facility] [place] [address] [facility] Care Teams Director Retirement Relationship Specialty Start Date End Date Provider, None [place] PCP - General 09/10/17
== END 2024-09-29 14:40 | disposition home or self-care (01) ==
PROVIDERS: PCP Nurse Practitioner; Visit Provider Surgery
DX: R91.1 Solitary pulmonary nodule (principal)
CPT/HCPCS: 71250

== ENCOUNTER 2024-10-12 13:43 | Outpatient (CLI) | payer MEDICARE, SELFPAY | END 2024-10-12 13:44 | disposition home or self-care (01) | PROVIDERS: PCP Surgery; Visit Provider Surgery | DX: K40.20 Bilateral inguinal hernia, without obstruction or gangrene, not specified as recurrent (principal); I71.43 Infrarenal abdominal aortic aneurysm, without rupture | CPT/HCPCS: 74176 ==

== ENCOUNTER 2024-11-20 12:25 | Outpatient (CLI) | payer MEDICARE, SELFPAY ==
--- NOTE | ~2024-11-20 | XR_ITS ---
EXAMINATION: XR chest 2V 11/20/2024 13:15 INDICATION: Unilateral inguinal hernia PROCEDURE: 2 view chest COMPARISON: No prior studies for comparison. FINDINGS: The lungs are clear. The cardiomediastinal silhouette is within normal limits. There are no pleural effusions. There is no pneumothorax suspected. There is ectasia of the aorta. There are healing bilateral lower rib fractures. IMPRESSION: 1: NO ACUTE CARDIOPULMONARY DISEASE. Reviewed, dictated and finalized at location A.
--- NOTE | 2024-11-20 12:41 | ECG_ITS ---
Test Date: 2024-11-20 12:58:12 Measurements Intervals Treichlers Rate: 66 P: 57 OK: 211 QRS: -7 QRSD: 104 T: 28 QT: 396 QTc: 416 Interpretive Statements SINUS RHYTHM WITH FIRST DEGREE AV BLOCK POSSIBLE LEFT ATRIAL ENLARGEMENT CANNOT R/O SEPTAL INFARCT, AGE INDETERMINATE BASELINE ARTIFACT- I, II, III, AVR, AVL, AVF, V1-V6 ABNORMAL ECG No previous ECG available for comparison Electronically Signed On 11-20-2024 13:59:32 CDT by Eric Madrid D.O.
[2024-11-20 13:12] LABS: Basophils Percent Auto 0.6 % (0.2-1.2); Eosinophils Absolute Auto 0.1 K/mm3 (0-0.3); Eosinophils Percent Auto 1.7 % (0-4.4); Hematocrit 53.9 % (42.0-52.0); Hemoglobin 17.5 g/dL (14.0-18.0); Immature Granulocyte Absolute 0.03 K/mm3 (0.00-0.031); Immature Granulocyte Percent A 0.5 % (0-0.5); Lymphocytes Percent Auto 21.6 % (18.3-44.2); Mean Corpuscular HGB Conc 32.5 g/dl (32-36); Mean Corpuscular Hemoglobin 30.9 pg (26-34); Mean Corpuscular Volume 95.1 fl (80-100); Mean Platelet Volume 9.6 fl (7.4-10.4); Monocytes Absolute Auto 0.7 K/mm3 (0.1-0.6); Neutrophils Absolute Auto 4.2 K/mm3 (1.3-6.7); Neutrophils Percent Auto 65.6 % (45.5-73.1); Platelet Count Result 184 k/mm3 (150-375); Red Blood Count 5.67 M/mm3 (4.6-6.20); Red Cell Distribution Width 13.9 % (11.5-14.5); White Blood Count 6.5 K/mm3 (4.5-10.0)
[2024-11-20 13:32] LABS: Anion Gap 8 mmol/L (4-12); Blood Urea Nitrogen 16 mg/dL (9-20); Calcium 8.9 mg/dL (8.4-10.2); Carbon Dioxide 29 mmol/L (22-30); Chloride 105 mmol/L (98-107); Estimated Glomerular Filt Rate > 60; Glucose 92 mg/dL (65-110); Potassium 4.4 mmol/L (3.4-5.0); Sodium 142 mmol/L (137-145)
--- OUTSIDE RECORDS SUMMARY | 2024-11-20 14:08 | XMS_ITS | Clinical Summary ---
Author Organization [facility] [address] Address [address] [place] [address] Care Team Providers Care Golf Club Weigher Name Role Phone Hiram Gonsales MD Primary Care Provider +1- [phone] Allergies No known active allergies Medications hydroCHLOROthiaz zacarias (HYDRODIURIL) 25 mg tablet Take 25 mg by mouth daily 12/16/2020 Active Incruse Ellipta 62.5 mcg/actuation blister with device INHALE 1 PUFF BY MOUTH ONCE DAILY 02/24/2021 Active Active Problems Problem Noted Date Diagnosed Date COPD (chronic obstructive pulmonary disease) Pulmonary HTN 04/09/2021 Atrioventricular block, complete 03/13/2021 First degree AV block 03/13/2021 Intermittent lightheadedness [...] on file Legal Sex Male 1:42 PM RN DOCUMENTATION SPECIALIST Gender Identity Not on file Sexual [...] of Treatment Not on file Insurance MEDICARE [facility] Care Teams Golf Club Weigher Relationship Specialty Start Date End Date Hiram Gonsales MD [address] [facility] [address] [place], [place] [id number] PCP - General Internal Medicine 03/13/21
--- OUTSIDE RECORDS SUMMARY | 2024-11-20 14:08 | XMS_ITS | Encounter Summary ---
Author Organization [facility] Address [address] [place] [address] Care Team Providers Care Flight Communications Specialist Name Role Phone Nam Marcano PA-C Primary Care Provide r Encounter Details Date Type Department Care Team (Late st Contact Info) Description 04/06/2008 Outpatient Historical [facility] James Granados MD [address] [place] [address] [place] [address] Social History Tobacco Use Types Packs/Day Years Used Date Smoking Tobacco: Every Day Cigarettes 2 30 Alcohol Use Standard Drinks/Week Comments No 0 (1 standard drink = 0.6 oz pur e alcohol) Sex and Gender Information Value Date Recorded Sex Assigned at Not on file Legal Sex Male 5:34 AM TIME STUDY ENGINEER Gender Identity Not on file Sexual Orientation Not on file documented as of this encounter Plan of Treatment Not on file documented as of this encounter Procedures Procedure Name Priority Date/Time Associated Diagnosis Comments PATHOLOGY Routine 04/06/2008 12:00 PM CDT documented in this encounter Results * PATHOLOGY (04/06/2008 12:00 PM CDT) FINAL REPORT [facility] [address] [place], [place] [address] Patient: PORTER CRUZ : 1950 Procedure Date: 04/06/2008 Accession Date: 04/06/2008 Case No: [id number] Ordering Dr: JAMES GRANADOS Case types AW, BW, FW, NW and SH are performed by [facility] [place], [place], [place] SURGICAL PATHOLOGY & NON-GYNECOLOGIC CYTOPATHOLOGY REPORT DIAGNOSIS LARGE INTESTINE, SIGMOID, BIOPSY: - HYPERPLASTIC POLYP. Specimen Description: Sigmoid. Operative Procedure: Colonoscopy. Patient Information/Histo ry/Diagnosis: Colon polyp(s). Adenomatous vs. hyperplastic vs. other. Gross: Received in one container labeled Porter Cruz., sigmoid are three dean tissue fragments, each 0.2 cm in greatest dimension, which are submitted in block A1. [facility] 04.06.2008 01:43 pm Microscopic: Received are three slides labeled [id number] William. Histological sections of the specimen labeled sigmoid show multiple fragments of colonic mucosa with serrated epithelium confined to the superficial surface of the mucosa. There is no evidence of cytological atypia or malignancy. [facility] 04.07.2008 08:15 am Staging Form: No. ELECTRONIC SIGNATURE FOR OSMAR ALVARADO MD- 04/07/08 12:08 pm INTERFACE SYSTEM 04/06/2008 12:0 0 PM CDT us James Granados MD PATHOLOGY/CYTOLOGY ORDERABL ES Final Result INTERFACE SYSTEM Refer to clinic/hospital department documented in this encounter Visit Diagnoses Not on filedocumented in this encounter Care Teams Flight Communications Specialist Relationship Specialty Start Date End Date Nam Marcano PA-C PCP - General Physician Cardiopulmonary Physical Therapist 10/12/18 documented as of this encounter
--- OUTSIDE RECORDS SUMMARY | 2024-11-20 14:08 | XMS_ITS | Referral Summary ---
Author Organization [facility] [address] Address [address] [place] [address] Care Team Providers Care Clinical Research Director Name Role Phone Hiram Gonsales MD Primary Care Provider +1- [phone] Allergies No known active allergies Medications hydroCHLOROthiaz [...] on file Legal Sex Male 1:42 PM INFANTRY INDIRECT FIRE CREWMEMBER Gender Identity Not on file Sexual Orientation [...] of Treatment Not on [place] [address] [facility] Care Teams Clinical Research Director Relationship Specialty Start Date End Date Hiram Gonsales MD [address] [facility] [address] [place] [address] PCP - General Internal Medicine 03/13/21
--- OUTSIDE RECORDS SUMMARY | 2024-11-20 14:08 | XMS_ITS | Encounter Summary ---
Author Organization [facility] Address [address] [place] [address] Care Team Providers Care Net Developer Programmer Name Role Phone Nam Marcano PA-C Primary Care Provide r Encounter Details Date Type Department Care Team (Latest Contact Info) Description 02/24/2008 Outpatient Historical [facility] Ariel Davis MD [address] [place] [address] [place] [address] Pain in Joint, Multiple Sites Social History Tobacco Use Types Packs/Day Years Used Date Smoking Tobacco: Every Day Cigarettes 2 30 Alcohol Use Standard Drinks/Week Comments No 0 (1 standard drink = 0.6 oz pur e alcohol) Sex and Gender Information Value Date Recorded Sex Assigned at Not on file Legal Sex Male 5:34 AM CASINO SLOT SUPERVISOR Gender Identity Not on file Sexual Orientation Not on file documented as of this encounter Plan of Treatment Not on file documented as of this encounter Visit Diagnoses Diagnosis Pain in joint, multiple sites documented in this encounter Care Teams Net Developer Programmer Relationship Specialty Start Date End Date Nam Marcano PA-C PCP - General Physician Air Drier Machine Operator 10/12/18 documented as of this encounter
--- OUTSIDE RECORDS SUMMARY | 2024-11-20 14:08 | XMS_ITS | Clinical Summary ---
Author Organization [facility] Address [address] [place] [address] Phone Care Team Providers Care Lead Programmer Name Role Phone Provider, None Primary Care [...] Take 10 mg by mouth daily. Active Encounters Date Type Department Care Team Description 09/18/2024 4:00 PM ASSEMBLER DRY CELL AND BATTERY Ancillary Procedure [facility] - Diagnostic Radiology - [place] [address] [place] [address] Yoana Shabazz APRN, TRANSPORTER RADIOLOGY Discharge Disposition: Discharged to home or Selfcare 09/18/2024 1:55 PM ASSEMBLER DRY CELL AND BATTERY [facility] [place] [address] [place] [address] Yoana Shabazz APRN, CNP Rib pain (Primary Dx) Discharge Disposition: Discharged to home or Selfcare 09/18/2024 Results Follow-Up [facility] - [facility] [place] [address] [place] [id number] Yoana Shabazz APRN, CNP 09/18/2024 Travel from Last 3 Months Immunizations Immunization [...] on file Legal Sex Male 1:57 PM ASSEMBLER DRY CELL AND BATTERY Gender Identity Not on file Sexual Orientation Not on file Last Filed Vital Signs Vital Sign Reading Time Taken Comments Blood Pressure 144/88 09/18/2024 1:52 PM ASSEMBLER DRY CELL AND BATTERY Pulse 79 09/18/2024 1:52 PM ASSEMBLER DRY CELL AND BATTERY Temperature 36.9 C (98.4 F) 09/18/2024 1:52 PM ASSEMBLER DRY CELL AND BATTERY Respiratory Rate 19 09/18/2024 1:52 PM ASSEMBLER DRY CELL AND BATTERY Oxygen Saturation 94% 09/18/2024 1:52 PM ASSEMBLER DRY CELL AND BATTERY Inhaled Oxygen Concentration - - Weight 89.4 [...] CHEST Stat with Interpretation 09/18/2024 4:08 PM ASSEMBLER DRY CELL AND BATTERY Rib pain from Last 3 Months Results * XR RIBS BILATERAL WITH PA CHEST (09/18/2024 4:08 PM ASSEMBLER DRY CELL AND BATTERY) Anatomical Region Laterality Modality Chest, Rib Bilateral Digital Radiogra phy 09/18/2024 4:25 PM ASSEMBLER DRY CELL AND BATTERY Impressions 09/18/2024 4:27 PM ASSEMBLER DRY CELL AND BATTERY IMPRESSION: Suspected minimally displaced fractures of the lateral left 10th and 11th ribs and lateral right 9th rib. These could be better evaluated on CT if clinically appropriate. Small left-sided pleural effusion with left basilar opacities, which may represent atelectasis or pneumonia. Narrative 09/18/2024 4:27 PM ASSEMBLER DRY CELL AND BATTERY EXAM DESCRIPTION: XR RIBS BILATERAL WITH PA [...] Miguel Blackwell M.D. AM: AM Report ID: [id number] Reading Location: [place] [address] Procedure Note Miguel Blackwell MD - 09/18/2024 [...] Miguel Blackwell M.D. AM: AM Report ID: [id number] Reading Location: [place] [address] IMPRESSION: Suspected minimally displaced fractures of the lateral left 10th and 11th ribs and lateral right 9th rib. These could be better evaluated on CT if clinically appropriate. Small left-sided pleural effusion with left basilar opacities, which may represent atelectasis or pneumonia. Yoana Shabazz EXECUTIVE PRODUCER PROMOS, TRANSPORTER RADIOLOGY IMG DIAGNOSTIC ORD ERABLES Final Result from Last 3 Months Insurance MEDICARE [facility] Care Teams Lead Programmer Relationship Specialty Start Date End Date Provider, None [place] PCP - General 09/10/17
--- OUTSIDE RECORDS SUMMARY | 2024-11-20 14:08 | XMS_ITS | Encounter Summary ---
Author Organization [facility] Address [address] [place] [address] Phone Care Team Providers Care Branch Specialist Name Role Phone Provider, None Primary Care Provider Unavailabl e Encounter Details Date Type Department Care Team (Late st Contact Info) Description 09/18/2024 Results Follow-Up [facility] - [facility] [place] [address] [place] [address] Yoana Shabazz APRN, PARTS DESIGNER [address] [place] [address] Social History Tobacco Use Types Packs/Day Years Used Date Smoking Tobacco: Every Day Cigarettes Smokeless Tobacco: Never Alcohol Use Standard Drinks/Week Comments Yes 0 (1 standard drink = 0.6 oz pur e alcohol) socially Sexually Active Control Partners Comments Not Currently Sex and Gender Information Value Date Recorded Sex Assigned at Not on file Legal Sex Male 1:57 PM COMPARISON SHOPPER Gender Identity Not on file Sexual Orientation Not on file documented as of this encounter Plan of Treatment Not on file documented as of this encounter Visit Diagnoses Not on filedocumented in this encounter Additional Health Concerns Assessment Noted Time PHQ-9 Depression Total Score: 0 09/20/19 18 3:00 PM COMPARISON SHOPPER documented as of this encounter Care Teams Branch Specialist Relationship Specialty Start Date End Date Provider, None [place] PCP - General 09/10/17 documented as of this encounter
--- OUTSIDE RECORDS SUMMARY | 2024-11-20 14:08 | XMS_ITS | Clinical Summary ---
Author Organization [facility] Address [facility] [place] [address] Care Team Providers Care Cognos Architect Name Role Phone Unavailable Primary Care Provider Unavailabl e Social History Tobacco Use Types Packs/Day Years Used Date Smoking Tobacco: Never Assessed Sex and Gender Information Value Date Recorded Sex Assigned at Not on file Legal Sex Male 10:50 PM BANK OFFICER Gender Identity Not on file Sexual Orientation [...] Documents on File Type Date Recorded Patient Asbestos Brake Lining Finisher Helper Expl anation Advance Directives and Living Will 10/30/2017 SHORT FORM POWER OF WOOL HANKER Advance Directives and Living Will 10/30/2017 SHORT FORM POWER OF WOOL HANKER Advance Directives and Living Will 11/02/2016 SHORT FORM POWER OF WOOL HANKER Advance Directives and Living Will 11/02/2016 SHORT FORM POWER OF WOOL HANKER
--- OUTSIDE RECORDS SUMMARY | 2024-11-20 14:08 | XMS_ITS | Continuity of Care Document ---
Author Organization [facility] Address [address] [facility] [address] [place] [address] Phone Care Team Providers Care Farmworker Name Role Phone Sandeep Cruz MD Unavailable Unavailable Allergies, Adverse Reactions, Alerts Substance Reaction Status Criticality No Known Allergies Active No Inform ation Medications Medication Instructions Dosage Effective Dates (start - stop) Status Comments HYDROCHLOROTHIAZIDE (unknown strength) take 1 tablet by oral route every day Not Available - Active Procedures Procedure Date OFFICE/OUTPATIENT VISIT [facility] Advance Directives Directive Yes / No Effective Date File Name No Information Encounters Encounter Description Practice Location Reason(s) For Visit Diagnoses Date Provider Providers Copied on Encounter [facility], [address] [place] [address], [facility], tel:[phone] [facility] No Information [facility]. [address] [place] [address], [id number] . tel: [phone] OFFICE/OUTPAT IENT VISIT [facility], [address] [place] [address], [facility], tel:[phone] [facility] Chronic instability of right knee 9 [facility]. [address] [place] [address], [id number] . tel: [phone] Family History Family Member Type Diagnosis Age At Onset Daughter Problem (finding) Alive and well Payers Payer name Insurance type Covered constitution party ID Authoriza tion(s) No Information Social [...]
--- OUTSIDE RECORDS SUMMARY | 2024-11-20 14:08 | XMS_ITS | Clinical Summary ---
Author Organization [facility] Address [address] [place] [address] Phone Care Team Providers Care Tie Worker Name Role Phone Nam Marcano PA-C Primary [...] for Spasm. 90 Tablet 10/19/2018 7:44 PM MEDICAL RECORDS AUDITOR 9 Active oxyCODONE-aceta minophen (PERCOCET) 5-325 mg tablet Take 1 Tablet by mouth every 4 hours as needed for Pain. Max Daily Amount: 6 Tablets 42 Tablet 10/19/2018 7:44 PM MEDICAL RECORDS AUDITOR 9 Active Active Problems Problem Noted Date [...] Legal Sex Male 5:34 AM MEDICAL RECORDS AUDITOR Gender Identity Not on file Sexual Orientation Not on file Last Filed Vital Signs Vital Sign Reading Time Taken Comments Blood Pressure 134/75 10/19/2018 7:00 PM MEDICAL RECORDS AUDITOR Pulse 85 10/19/2018 7:00 PM MEDICAL RECORDS AUDITOR Temperature 36.6 C (97.8 F) 10/19/2018 7:00 PM MEDICAL RECORDS AUDITOR Respiratory Rate 16 10/19/2018 7:00 PM MEDICAL RECORDS AUDITOR Oxygen Saturation 93% 10/19/2018 7:00 PM MEDICAL RECORDS AUDITOR Inhaled Oxygen Concentration - - Weight 90.4 kg (199 lb 6.4 oz) 10/19/2018 1:04 P M MEDICAL RECORDS AUDITOR Height 193 cm (6' 4 ) 10/19/2018 1:04 PM MEDICAL RECORDS AUDITOR Body Mass Index 24.27 10/19/2018 1:04 PM MEDICAL RECORDS AUDITOR Plan of Treatment Health Maintenance Due Date [...] VACCINE (1 of 2) 2002 PNEUMOCOCCAL VACCINE 50+ YEA RS (2 of 2 - PPSV23) 08/05/2018 06/10/2018 INFLUENZA VACCINE (#1) 2024 06/11/2018, 2017 RSV VACCINE (60+ or ) (1 - 1-dose 75+ series) 2027 Medical Devices Implanted Type Area Color Depositing Machine Tender Device Identifier Shelf Expiration Date Model / Serial / Lot Hemostatic Surgiflo 8ml W/Thrombin 2994 - [id number] Implanted:Qty : 1 on 10/19/2018 by Janes Navarro MD at [facility] Hemostatic N/A: Epidural Space [employer] [id number] 02/13/2020 [id number] / / [id number] Thumb Hardware Neck Hardware Insurance MEDICARE PART A AND B [facility] [id number] RX [employer] Medicare Part D RX [employer] PLANS (INTERNAL) [facility] Internal Plans Advance Directives For more information, please contact: [phone] * Full Code (Latest Code Status on File) Date Activated Date Inactivated Comments 10/19/2018 4:06 PM 10/19/2018 11:32 PM * Full Code Date Activated Date Inactivated Comments 10/19/2018 1:30 PM 10/19/2018 4:06 PM Care Teams Tie Worker Relationship Specialty Start Date End Date Nam Marcano PA-C PCP - General Physician A P Mechanic 10/12/18
--- OUTSIDE RECORDS SUMMARY | 2024-11-20 14:08 | XMS_ITS | Encounter Summary ---
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
--- OUTSIDE RECORDS SUMMARY | 2024-11-20 14:08 | XMS_ITS | Encounter Summary ---
Author Organization [facility] Address [address] [place] [address] Care Team Providers Care Gps Field Data Collector Name Role Phone Nam Marcano PA-C Primary Care Provide r Encounter Details Date Type Department Care Team (Latest Contact Info) Description 01/26/2008 Outpatient Historical HIS [facility] Ariel Davis MD [address] [place] [address] Special Screening for Malignant Neoplasm of Prostate Social History Tobacco Use Types Packs/Day Years Used Date Smoking Tobacco: Every Day Cigarettes 2 30 Alcohol Use Standard Drinks/Week Comments No 0 (1 standard drink = 0.6 oz pur e alcohol) Sex and Gender Information Value Date Recorded Sex Assigned at Not on file 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
== END 2024-11-20 12:26 | disposition home or self-care (01) ==
LOC: ANHSURGERY 12:33
PROVIDERS: PCP Nurse Practitioner; Visit Provider Surgery
DX: K40.90 Unilateral inguinal hernia, without obstruction or gangrene, not specified as recurrent (principal); Z01.818 Encounter for other preprocedural examination; I44.0 Atrioventricular block, first degree
CPT/HCPCS: 36415; 71046; 80048; 85025; 86850; 86900; 86901; 93005